=== PATIENT | male | born 1990 | race Caucasian/White ===

== ENCOUNTER 2019-04-11 19:55 | Emergency (ER) | payer OTHER, SELFPAY ==
[2019-04-11 20:45] LABS: Basophils Absolute Auto 0.1 K/mm3 (0.0-0.1); Basophils Percent Auto 0.6 % (0.2-1.2); Eosinophils Absolute Auto 0.2 K/mm3 (0-0.3); Eosinophils Percent Auto 1.5 % (0-4.4); Hematocrit 43.5 % (42.0-52.0); Hemoglobin 13.7 g/dL (14.0-18.0); Immature Granulocyte Absolute 0.03 K/mm3 (0.00-0.031); Immature Granulocyte Percent A 0.3 % (0-0.5); Lymphocytes Absolute Auto 2.76 K/mm3 (0.9-3.2); Lymphocytes Percent Auto 24.8 % (18.3-44.2); Mean Corpuscular HGB Conc 31.5 g/dl (32-36); Mean Corpuscular Hemoglobin 24.7 pg (26-34); Mean Corpuscular Volume 78.4 fl (80-100); Mean Platelet Volume 12.1 fl (7.4-10.4); Monocytes Absolute Auto 0.9 K/mm3 (0.1-0.6); Monocytes Percent Auto 8.1 % (2.6-8.5); Neutrophils Absolute Auto 7.2 K/mm3 (1.3-6.7); Neutrophils Percent Auto 64.7 % (45.5-73.1); Platelet Count Result 173 k/mm3 (150-375); Red Blood Count 5.55 M/mm3 (4.6-6.20); Red Cell Distribution Width 15.4 % (11.5-14.5); White Blood Count 11.1 K/mm3 (4.5-10.0)
[2019-04-11 20:55] LABS: Alanine Aminotransferase 19 U/L (4-50); Albumin Level 4.2 g/dL (3.5-5.1); Alkaline Phosphatase 135 U/L (38-126); Aspartate Amino Transferase 23 U/L (17-59); Bilirubin,Total 0.2 mg/dL (0.2-1.3); Blood Urea Nitrogen 17 mg/dL (9-20); Calcium 9.5 mg/dL (8.4-10.2); Carbon Dioxide 28 mmol/L (22-30); Chloride 101 mmol/L (98-107); Estimated Glomerular Filt Rate > 60; Glucose 116 mg/dL (75-110); Lipase 23 U/L (23-300); Potassium 3.7 mmol/L (3.4-5.0); Sodium 139 mmol/L (137-145)
[2019-04-11 22:12] LABS: Add Urine Microscopic? YES; Amorphous Sediment Urine Few; Appearance Urine Cloudy (Clear); Bilirubin Urine Negative (Negative); Blood Urine Negative (Negative); Color Urine Yellow (Yellow); Glucose Urine UA Negative (Negative); Ketones Urine Negative (Negative); Leukocyte Esterase Ur Negative LEU/UL (Negative); Nitrate Urine Negative (Negative); Protein Urine Negative (Negative); Specific Grav Ur 1.023 (1.001-1.035); Squamous Epithelial Cell Urine Few /hpf (Few); Urobilinogen Urine Negative mg/dL (<2.0); WBC Urine 0-3 /hpf
--- NOTE | 2019-04-12 00:58 | ED.GENADULT ---
HPI - General Adult General Chief complaint: Abdominal Pain Stated complaint: bleeding from rectum Time Seen by Provider: 04/12/19 00:57 Source: patient Mode of arrival: EMS Limitations: no limitations History of Present Illness HPI narrative: Pt was brought in by EMS for rectal bleeding and abdominal pain. He tells me he had a bowel movement today and saw blood in the toilet. He also has epigastric pain. He tells me he took 20 naproxen last week and drinks whiskey straight, when I drink and is concerned that he may now have an ulcer. He states that the pain gets worse when he eats. He was recently hospitalized for psychiatric care and states that he complained of the pain then and was given mylanta with no relief. Onset (ago): day(s) Location: abdomen Radiation: non-radiation Severity: severe (but not reflected in demeanor) Quality: stabbing Pain Consistency: constant Relieving factors: none Exacerbating factors: eating and other (touch) Associated symptoms: denies other symptoms Treatments prior to arrival: none Related Data Home Medications Medication Instructions Recorded Confirmed clonidine HCl 0.1 mg PO QID 02/01/19 divalproex 500 mg PO DAILY 02/01/19 famotidine 20 mg PO DAILY 02/01/19 gabapentin 100 mg PO TID 02/01/19 lithium carbonate 450 mg PO BID 02/01/19 metformin 500 mg PO BID 02/01/19 naproxen 500 mg PO BID PRN 02/01/19 quetiapine 200 mg PO HS 02/01/19 sertraline 100 mg PO DAILY 02/01/19 trazodone 100 mg PO HS 02/01/19 Allergies Allergy/AdvReac Type Severity Reaction Status Date / Time amoxicillin Allergy Intermediate Other Verified 02/01/19 14:18 red dye Allergy Intermediate Other Verified 02/01/19 14:18 latex Allergy Mild Rash Verified 02/01/19 14:18 ibuprofen AdvReac Mild Other Verified 02/01/19 23:59 Review of Systems Review of Systems: All systems reviewed & are unremarkable except as noted in HPI and below PMFSH Past Medical History Medical History Anxiety Arthritis Asthma Bronchitis Depression Diabetes GERD (gastroesophageal reflux disease) History of bipolar disorder HTN (hypertension) Previous known suicide attempt Schizophrenia Seizure Sleep apnea Ulcer UTI (urinary tract infection) Surgical History Surgical History History of bilateral hip replacements Social History Social History (Updated 04/12/19 @ 02:35 by Sharita Bueno PA-C) Smoking status: Never smoker Alcohol intake: current Substance use type: marijuana Gender identity (if verbalized by the patient): Male Exam Const: General: healthy appearing and no acute distress Orientation/consciousness: patient oriented x3 HENMT: Head: normal to inspection Ears: TM's normal bilaterally General nose exam: Normal nares present Mouth: Yes moist mucous membranes Eyes: Pupils: Equal, round and reactive pupils present Resp: Effort & Inspection: normal respiratory effort Auscultation: clear to auscultation bilaterally Cardio: Rate: regular rate Rhythm: regular rhythm GI: GI Palp: Yes abdominal tenderness (epigastric region) and Yes Soft to palpation Auscultation: normal bowel sounds Rectal Exam: visual inspection normal, normal sphincter tone and heme negative stool Skin: General skin exam: normal color Rashes: no rashes Neuro: General: moves all extremities Extrem: General: normal to inspection and no clubbing, cyanosis or edema Psych: Mental Status: mental status grossly normal Course Course Emergency Course: As I am talking to patient about labs and a plan I am unable to illicit pain in abdomen. Will treat with GI cocktail. Recommend that patient follow up with GI outpatient if pain persists. Medical Decision Making Lab Data Result diagrams: 04/11/19 20:38 04/11/19 20:38 Labs: Lab Results 04/11/19 04/11/19 04/11/19 Range/Units 20:38 2
[2019-04-12 01:04] VITALS: BP 142/91; PULSE 63; RESP 16; TEMP 36.6; O2SAT 98
[2019-04-12 02:22] VITALS: BP 111/68; PULSE 61; RESP 14; O2SAT 98
[2019-04-12] MEDS: BELLADONNA ALK/PHENOB ELIX 10 ML, MAG HYDROX/ALUMINUM HYD/SIMETH 30 ML, LIDOCAINE HCL 2... PO (02:49)
[2019-04-12 03:40] VITALS: BP 157/94; PULSE 68; RESP 16; TEMP 36.6; O2SAT 100
== END 2019-04-12 03:42 | disposition home or self-care (01) ==
PROVIDERS: Emergency Medicine; Emergency Provider Emergency Medicine; PCP Internal Medicine
DX: K29.70 Gastritis, unspecified, without bleeding (principal); F41.9 Anxiety disorder, unspecified; M19.90 Unspecified osteoarthritis, unspecified site; J45.909 Unspecified asthma, uncomplicated; E11.9 Type 2 diabetes mellitus without complications; K21.9 Gastro-esophageal reflux disease without esophagitis; I10 Essential (primary) hypertension; F31.9 Bipolar disorder, unspecified; F20.9 Schizophrenia, unspecified; G47.30 Sleep apnea, unspecified; Z87.440 Personal history of urinary (tract) infections; Z96.643 Presence of artificial hip joint, bilateral; Z79.84 Long term (current) use of oral hypoglycemic drugs
CPT/HCPCS: 36415; 80053; 81001; 83690; 85025; 99283; A9270

== ENCOUNTER 2019-05-03 16:15 | Emergency (ER) | payer OTHER, SELFPAY ==
[2019-05-03 16:47] VITALS: BP 149/121; PULSE 61; RESP 15; TEMP 36.9; O2SAT 99
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
[2019-05-03 17:13] LABS: Basophils Percent Auto 0.4 % (0.2-1.2); Eosinophils Absolute Auto 0.2 K/mm3 (0-0.3); Hematocrit 39.3 % (42.0-52.0); Hemoglobin 12.2 g/dL (14.0-18.0); Immature Granulocyte Absolute 0.01 K/mm3 (0.00-0.031); Immature Granulocyte Percent A 0.1 % (0-0.5); Immature Platelet Fraction Pct 4.1 % (0.9-11.2); Lymphocytes Absolute Auto 2.03 K/mm3 (0.9-3.2); Lymphocytes Percent Auto 22.1 % (18.3-44.2); Mean Corpuscular Hemoglobin 24.8 pg (26-34); Mean Corpuscular Volume 79.9 fl (80-100); Mean Platelet Volume 11.3 fl (7.4-10.4); Monocytes Absolute Auto 0.6 K/mm3 (0.1-0.6); Monocytes Percent Auto 6.1 % (2.6-8.5); Neutrophils Absolute Auto 6.4 K/mm3 (1.3-6.7); Neutrophils Percent Auto 69.3 % (45.5-73.1); Platelet Count Result 121 k/mm3 (150-375); Red Blood Count 4.92 M/mm3 (4.6-6.20); Red Cell Distribution Width 15.2 % (11.5-14.5); White Blood Count 9.2 K/mm3 (4.5-10.0)
[2019-05-03 17:14] LABS: Add Urine Microscopic? YES; Appearance Urine Clear (Clear); Bilirubin Urine Negative (Negative); Blood Urine 1+ (Negative); Color Urine Yellow (Yellow); Glucose Urine UA Negative (Negative); Ketones Urine Negative (Negative); Leukocyte Esterase Ur Negative LEU/UL (Negative); Mucus Urine Rare /lpf; Nitrate Urine Negative (Negative); Protein Urine Negative (Negative); RBC Urine 0-2 /hpf (0-2); Specific Grav Ur 1.017 (1.001-1.035); Squamous Epithelial Cell Urine Few /hpf (Few); Urobilinogen Urine Negative mg/dL (<2.0); WBC Urine 0-3 /hpf
[2019-05-03 17:24] LABS: Alanine Aminotransferase 21 U/L (4-50); Alkaline Phosphatase 108 U/L (38-126); Aspartate Amino Transferase 28 U/L (17-59); Bilirubin,Total 0.2 mg/dL (0.2-1.3); Blood Urea Nitrogen 10 mg/dL (9-20); Calcium 9.2 mg/dL (8.4-10.2); Carbon Dioxide 29 mmol/L (22-30); Chloride 104 mmol/L (98-107); Estimated CRCL calculation 325 ml/min; Estimated Glomerular Filt Rate > 60; Glucose 95 mg/dL (75-110); Potassium 3.9 mmol/L (3.4-5.0); Sodium 140 mmol/L (137-145)
[2019-05-03 17:25] LABS: Ethanol < 10 mg/dL (<10)
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
[2019-05-03 17:32] LABS: Amphetamine Screen Urine Negative (Negative); Barbiturate Screen Urine Negative (Negative); Benzodiazepines Screen Urine Positive (Negative); Cannabinoid Screen Urine Negative (Negative); Cocaine Screen Urine Negative (Negative); Methadone Screen Urine Negative (Negative); Opiate Screen Urine Negative (Negative); Phencyclidine Screen Urine Negative (Negative)
[2019-05-03 18:00] LABS: Thyroid Stimulating Hormone 0.759 uIU/mL (0.465-4.680)
--- NOTE | 2019-05-03 19:17 | PC.NURSE ---
Nancy from Crisis is here to see pt.
== END 2019-05-03 20:50 ==
PROVIDERS: Emergency Medicine; Emergency Provider Emergency Medicine; PCP Internal Medicine
DX: R45.4 Irritability and anger (principal); E11.9 Type 2 diabetes mellitus without complications; M19.90 Unspecified osteoarthritis, unspecified site; J45.909 Unspecified asthma, uncomplicated; K21.9 Gastro-esophageal reflux disease without esophagitis; I10 Essential (primary) hypertension; F31.9 Bipolar disorder, unspecified; Z87.440 Personal history of urinary (tract) infections; F20.9 Schizophrenia, unspecified; F41.9 Anxiety disorder, unspecified; Z79.84 Long term (current) use of oral hypoglycemic drugs
CPT/HCPCS: 36415; 80053; 80307; 81001; 84443; 85025; 85055; 99284

== ENCOUNTER 2019-05-25 20:04 | Emergency (ER) | payer OTHER, SELFPAY ==
--- NOTE | ~2019-05-25 | XR_ITS ---
XR ankle RT min 3V DATE: 05/25/2019 20:56 INDICATION: Right ankle pain, lateral swelling TECHNIQUE: 4 views COMPARISON: None FINDINGS: No recent fracture or dislocation of the ankle or disruption of the ankle mortise. No perio steal reaction or bone destruction. IMPRESSION: No recent fracture or dislocation Reviewed, dictated and finalized at location A.
[2019-05-25 20:16] VITALS: BP 129/65; PULSE 72; RESP 16; TEMP 36.5; O2SAT 99
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
[2019-05-25 20:51] LABS: Add Urine Microscopic? YES; Amorphous Sediment Urine Moderate; Appearance Urine Cloudy (Clear); Bilirubin Urine Negative (Negative); Blood Urine Negative (Negative); Color Urine Yellow (Yellow); Glucose Urine UA Negative (Negative); Ketones Urine Negative (Negative); Leukocyte Esterase Ur Negative LEU/UL (Negative); Mucus Urine Rare /lpf; Nitrate Urine Negative (Negative); Protein Urine 1+ mg/dL (Negative); RBC Urine 0-2 /hpf (0-2); Specific Grav Ur 1.023 (1.001-1.035); Squamous Epithelial Cell Urine Few /hpf (Few); Urobilinogen Urine Negative mg/dL (<2.0)
[2019-05-25 20:57] LABS: Basophils Absolute Auto 0.1 K/mm3 (0.0-0.1); Basophils Percent Auto 0.6 % (0.2-1.2); Eosinophils Absolute Auto 0.1 K/mm3 (0-0.3); Eosinophils Percent Auto 1.5 % (0-4.4); Hematocrit 41.6 % (42.0-52.0); Immature Granulocyte Absolute 0.02 K/mm3 (0.00-0.031); Immature Granulocyte Percent A 0.2 % (0-0.5); Mean Corpuscular HGB Conc 31.3 g/dl (32-36); Mean Corpuscular Hemoglobin 24.7 pg (26-34); Mean Corpuscular Volume 78.9 fl (80-100); Mean Platelet Volume 11.9 fl (7.4-10.4); Monocytes Absolute Auto 0.7 K/mm3 (0.1-0.6); Monocytes Percent Auto 7.9 % (2.6-8.5); Neutrophils Absolute Auto 5.6 K/mm3 (1.3-6.7); Neutrophils Percent Auto 67.8 % (45.5-73.1); Platelet Count Result 114 k/mm3 (150-375); Red Blood Count 5.27 M/mm3 (4.6-6.20); Red Cell Distribution Width 15.2 % (11.5-14.5); White Blood Count 8.2 K/mm3 (4.5-10.0)
--- NOTE | 2019-05-25 21:00 | PC.NURSE ---
Patient medically cleared per verbal order from Dr Matias.
[2019-05-25 21:01] LABS: Amphetamine Screen Urine Negative (Negative); Barbiturate Screen Urine Negative (Negative); Benzodiazepines Screen Urine Negative (Negative); Cannabinoid Screen Urine Negative (Negative); Cocaine Screen Urine Negative (Negative); Methadone Screen Urine Negative (Negative); Opiate Screen Urine Negative (Negative); Phencyclidine Screen Urine Negative (Negative)
[2019-05-25 21:09] LABS: Alanine Aminotransferase 21 U/L (4-50); Albumin Level 4.1 g/dL (3.5-5.1); Alkaline Phosphatase 104 U/L (38-126); Aspartate Amino Transferase 29 U/L (17-59); Bilirubin,Total 0.4 mg/dL (0.2-1.3); Blood Urea Nitrogen 13 mg/dL (9-20); Calcium 9.4 mg/dL (8.4-10.2); Carbon Dioxide 28 mmol/L (22-30); Chloride 103 mmol/L (98-107); Estimated CRCL calculation 272 ml/min; Estimated Glomerular Filt Rate > 60; Glucose 99 mg/dL (75-110); Potassium 3.8 mmol/L (3.4-5.0); Sodium 139 mmol/L (137-145)
[2019-05-25 21:11] LABS: Ethanol < 10 mg/dL (<10)
[2019-05-25 21:40] LABS: Thyroid Stimulating Hormone 0.871 uIU/mL (0.465-4.680)
--- NOTE | 2019-05-26 00:14 | PC.NURSE ---
Sabi Allred called and asked for additional information to be added to Voluntary form. Form fixed and resent.
--- NOTE | 2019-05-26 02:17 | ECG_ITS ---
Measurements Intervals [place] Rate: 52 P: 39 AL: 227 QRS: 13 QRSD: 112 T: 31 QT: 430 QTc: 400 Interpretive Statements SINUS BRADYCARDIA WITH FIRST DEGREE AV BLOCK INTRAVENTRICULAR CONDUCTION DELAY ABNORMAL ECG Electronically Signed On 05-26-2019 9:33:16 CDT by Donte Sanchez D.O.
[2019-05-26 04:33] VITALS: BP 108/46; PULSE 75; TEMP 36.8; O2SAT 97
--- NOTE | 2019-05-26 06:42 | PCDIET ---
Breakfast ordered at this time.
[2019-05-26 07:56] VITALS: BP 117/83; PULSE 70; RESP 16; O2SAT 96
== END 2019-05-26 07:57 ==
PROVIDERS: Emergency Provider Emergency Medicine; PCP Internal Medicine
DX: R45.850 Homicidal ideations (principal); F41.9 Anxiety disorder, unspecified; J45.909 Unspecified asthma, uncomplicated; E11.9 Type 2 diabetes mellitus without complications; K21.9 Gastro-esophageal reflux disease without esophagitis; F31.9 Bipolar disorder, unspecified; I10 Essential (primary) hypertension; F20.9 Schizophrenia, unspecified; G47.30 Sleep apnea, unspecified; Z87.440 Personal history of urinary (tract) infections; Z96.643 Presence of artificial hip joint, bilateral; Z79.84 Long term (current) use of oral hypoglycemic drugs
CPT/HCPCS: 36415; 73610; 80053; 80307; 81001; 84443; 85025; 93005; 99285

== ENCOUNTER 2019-06-16 18:07 | Emergency (ER) | payer OTHER, SELFPAY ==
--- NOTE | ~2019-06-16 | XR_ITS ---
EXAMINATION: XR chest 1V portable EXAM DATE: 06/16/2019 18:21 INDICATION: Right arm, chest pain. TECHNIQUE: Portable AP frontal chest x-ray was obtained. There is no prior study for comparison. FINDINGS: The lungs are clear. There are no pleural effusions. The cardiomediastinal silhouette is within normal limits. There is no pneumothorax suspected. The bones and soft tissues are unremarkab le. IMPRESSION: No acute cardiopulmonary findings. Reviewed, dictated and finalized at location A.
[2019-06-16 18:04] VITALS: BP 153/140; PULSE 59; RESP 20; O2SAT 100
--- NOTE | 2019-06-16 18:10 | ECG_ITS ---
Measurements Intervals [place] Rate: 54 P: 46 HI: 188 QRS: 0 QRSD: 104 T: 16 QT: 399 QTc: 378 Interpretive Statements SINUS BRADYCARDIA INCOMPLETE RIGHT BUNDLE BRANCH BLOCK VOLTAGE CRITERIA FOR LVH BASELINE ARTIFACT- I, II, AVR, V4-V6 BORDERLINE ECG Electronically Signed On 06-17-2019 7:10:52 CDT by Donte Sanchez D.O.
--- NOTE | 2019-06-16 18:11 | ED.CHESTPAIN ---
HPI - Chest Pain General Chief Complaint: Chest Pain Stated Complaint: chest pain Time Seen by Provider: 06/16/19 18:10 Source: RN notes reviewed Mode of arrival: EMS Limitations: no limitations History of Present Illness HPI narrative: A 28 y/o male [facility] sub[facility] beginning roughly 50 minutes ago. He states that the pain radiates into her RUE. He reports associated SOB, cough, sneezing, N/V, and ABD pain. He denies any fevers or chills. MD complaint: chest pain Pertinent past history: asthma Onset (ago): minute(s) (50) Pain location: substernal Pain radiation: right arm Associated symptoms: nausea, vomiting, dyspnea, cough and other (sneezing and ABD pain) Related Data Home Medications Medication Instructions Recorded Confirmed clonidine HCl 0.1 mg PO QID 02/01/19 divalproex 500 mg PO DAILY 02/01/19 famotidine 20 mg PO DAILY 02/01/19 gabapentin 100 mg PO TID 02/01/19 lithium carbonate 450 mg PO BID 02/01/19 metformin 500 mg PO BID 02/01/19 naproxen 500 mg PO BID PRN 02/01/19 quetiapine 200 mg PO HS 02/01/19 sertraline 100 mg PO DAILY 02/01/19 trazodone 100 mg PO HS 02/01/19 Allergies Allergy/AdvReac Type Severity Reaction Status Date / Time amoxicillin Allergy Intermediate Other Verified 06/16/19 18:10 red dye Allergy Intermediate Other Verified 06/16/19 18:10 latex Allergy Mild Rash Verified 06/16/19 18:10 ibuprofen AdvReac Mild Other Verified 06/16/19 18:10 Review of Systems Review of Systems: All systems reviewed & are unremarkable except as noted in HPI and below ENT: Reports nasal discharge Cardiovascular: Cardiovascular: Reports chest pain (substernal that radiates into RUE) Respiratory: Respiratory: Reports cough and Reports dyspnea Gastrointestinal: Gastrointestinal: Reports abdominal pain, Reports nausea and Reports vomiting PMFSH Past Medical History Medical History Anxiety Arthritis Asthma Bronchitis Depression Diabetes GERD (gastroesophageal reflux disease) History of bipolar disorder HTN (hypertension) Previous known suicide attempt Schizophrenia Seizure Sleep apnea Ulcer UTI (urinary tract infection) Surgical History Surgical History History of bilateral hip replacements Social History Social History Smoking status: Never smoker Alcohol intake: current Substance use type: marijuana Gender identity (if verbalized by the patient): Male Exam Narrative: Exam Narrative: General appearance: Well-developed, well-nourished, restless Skin: Normal color Head: Normocephalic, nontraumatic Eyes: Clear conjunctiva ENT: Oropharynx normal, ears normal, nose normal Neck: Supple, nontender Chest and respiratory: Airway patent, no respiratory distress, no accessory muscle use Heart: Regular rate/rhythm Abdomen: Soft, nontender, no organomegaly, quiet bowel sounds Vascular: Normal peripheral pulses, normal capillary refill. Musculoskeletal: Normal range of motion, nontender back Neurologic: Alert and oriented ?3, [employer] is normal as tested, no gross motor deficit Course Course Emergency Course: Stable Vital Signs Vital signs: Vital Signs Pulse Rate 59 L 06/16/19 18:04 Respiratory Rate 20 06/16/19 18:04 Blood Pressure 153/140 H 06/16/19 18:04 Pulse Oximetry 100 06/16/19 18:04 Pulse Rate 59 L 06/16/19 18:04 Respiratory Rate 20 06/16/19 18:04 Blood Pressure 153/140 H 06/16/19 18:04 Pulse Oximetry 100 06/16/19 18:04 MDM - Chest Pain MDM Narrative Medical decision making narrat
[2019-06-16 18:36] VITALS: BP 131/96; PULSE 50; RESP 18; O2SAT 100
[2019-06-16] MEDS: ONDANSETRON HCL ODT 4 MG TABLET PO (18:45)
[2019-06-16 19:22] VITALS: BP 131/96; PULSE 58; RESP 20; O2SAT 100
== END 2019-06-16 19:26 | disposition home or self-care (01) ==
PROVIDERS: Emergency Provider Emergency Medicine; PCP Internal Medicine
DX: R07.89 Other chest pain (principal); F41.9 Anxiety disorder, unspecified; M19.90 Unspecified osteoarthritis, unspecified site; E11.9 Type 2 diabetes mellitus without complications; K21.9 Gastro-esophageal reflux disease without esophagitis; F31.9 Bipolar disorder, unspecified; I10 Essential (primary) hypertension; F20.9 Schizophrenia, unspecified; G47.30 Sleep apnea, unspecified; Z87.440 Personal history of urinary (tract) infections; Z96.643 Presence of artificial hip joint, bilateral; R00.1 Bradycardia, unspecified; I45.10 Unspecified right bundle-branch block; R94.31 Abnormal electrocardiogram [ECG] [EKG]
CPT/HCPCS: 71045; 93005; 99283; A9270

== ENCOUNTER 2019-06-30 19:42 | Emergency (ER) | payer OTHER, SELFPAY ==
[2019-06-30 19:43] VITALS: BP 131/94; PULSE 68; RESP 18; TEMP 36.3; O2SAT 99
[2019-06-30 20:26] LABS: Basophils Absolute Auto 0.1 K/mm3 (0.0-0.1); Basophils Percent Auto 0.6 % (0.2-1.2); Eosinophils Absolute Auto 0.2 K/mm3 (0-0.3); Eosinophils Percent Auto 2.7 % (0-4.4); Hematocrit 42.4 % (42.0-52.0); Hemoglobin 13.1 g/dL (14.0-18.0); Immature Granulocyte Absolute 0.03 K/mm3 (0.00-0.031); Immature Granulocyte Percent A 0.4 % (0-0.5); Lymphocytes Absolute Auto 2.06 K/mm3 (0.9-3.2); Lymphocytes Percent Auto 24.6 % (18.3-44.2); Mean Corpuscular HGB Conc 30.9 g/dl (32-36); Mean Corpuscular Hemoglobin 24.9 pg (26-34); Mean Corpuscular Volume 80.6 fl (80-100); Mean Platelet Volume 12.4 fl (7.4-10.4); Monocytes Absolute Auto 0.6 K/mm3 (0.1-0.6); Monocytes Percent Auto 6.9 % (2.6-8.5); Neutrophils Absolute Auto 5.4 K/mm3 (1.3-6.7); Neutrophils Percent Auto 64.8 % (45.5-73.1); Platelet Count Result 119 k/mm3 (150-375); Red Blood Count 5.26 M/mm3 (4.6-6.20); White Blood Count 8.4 K/mm3 (4.5-10.0)
[2019-06-30 20:39] LABS: Add Urine Microscopic? YES; Appearance Urine Clear (Clear); Bilirubin Urine Negative (Negative); Blood Urine Negative (Negative); Color Urine Yellow (Yellow); Glucose Urine UA Negative (Negative); Ketones Urine Negative (Negative); Leukocyte Esterase Ur Negative LEU/UL (Negative); Mucus Urine Rare /lpf; Nitrate Urine Negative (Negative); Protein Urine 1+ mg/dL (Negative); RBC Urine 0-2 /hpf (0-2); Specific Grav Ur 1.023 (1.001-1.035); Squamous Epithelial Cell Urine Few /hpf (Few); Urobilinogen Urine Negative mg/dL (<2.0); WBC Urine 0-3 /hpf
[2019-06-30 20:40] LABS: Alanine Aminotransferase 26 U/L (4-50); Albumin Level 4.2 g/dL (3.5-5.1); Alkaline Phosphatase 90 U/L (38-126); Aspartate Amino Transferase 32 U/L (17-59); Bilirubin,Total 0.6 mg/dL (0.2-1.3); Blood Urea Nitrogen 10 mg/dL (9-20); Calcium 9.1 mg/dL (8.4-10.2); Carbon Dioxide 33 mmol/L (22-30); Chloride 101 mmol/L (98-107); Estimated CRCL calculation 263 ml/min; Estimated Glomerular Filt Rate > 60; Ethanol < 10 mg/dL (<10); Glucose 91 mg/dL (75-110); Potassium 3.8 mmol/L (3.4-5.0); Sodium 139 mmol/L (137-145)
[2019-06-30 20:52] LABS: Amphetamine Screen Urine Negative (Negative); Barbiturate Screen Urine Negative (Negative); Benzodiazepines Screen Urine Negative (Negative); Cannabinoid Screen Urine Negative (Negative); Cocaine Screen Urine Negative (Negative); Methadone Screen Urine Negative (Negative); Opiate Screen Urine Negative (Negative); Phencyclidine Screen Urine Negative (Negative)
--- NOTE | 2019-06-30 21:08 | ED.PSYCH ---
HPI - Psych General Chief Complaint: Psychiatric Symptoms <Lyubov Durham MD - Last Filed: 07/01/19 06:48> Stated Complaint: SI <Lyubov Durham MD - Last Filed: 07/01/19 06:48> Time Seen by Provider: 06/30/19 20:05 <Lyubov Durham MD - Last Filed: 07/01/19 06:48> Source: patient and EMS <Lyubov Durham MD - Last Filed: 07/01/19 06:48> Mode of arrival: EMS <Lyubov Durham MD - Last Filed: 07/01/19 06:48> History of Present Illness HPI Narrative: This patient is 28 yo male with Bipolar disorder who presents for evaluation of suicidal ideations. Patient is well known to staff. EMS reports patient walked to the police station stating he was suicidal and he was going to take some pills. Patient states he went to police because he felt like everything is crashing down on me over past 2 weeks . He states he was told that he is unable to return to his housing and his parents have kicked him out of the house. He states he had no where else to go. <Lyubov Durham MD - Last Filed: 07/01/19 06:48> MD complaint: suicidal ideation <yLubov Durham MD - Last Filed: 07/01/19 06:48> Related Data Home Medications: Home Medications Medication Instructions Recorded Confirmed clonidine HCl 0.1 mg PO QID 02/01/19 divalproex 500 mg PO DAILY 02/01/19 famotidine 20 mg PO DAILY 02/01/19 gabapentin 100 mg PO TID 02/01/19 lithium carbonate 450 mg PO BID 02/01/19 metformin 500 mg PO BID 02/01/19 naproxen 500 mg PO BID PRN 02/01/19 quetiapine 200 mg PO HS 02/01/19 sertraline 100 mg PO DAILY 02/01/19 trazodone 100 mg PO HS 02/01/19 <Lyubov Durham MD - Last Filed: 07/01/19 06:48> Allergies/Adverse Reactions: Allergies Allergy/AdvReac Type Severity Reaction Status Date / Time amoxicillin Allergy Intermediate Other Verified 06/16/19 18:10 red dye Allergy Intermediate Other Verified 06/16/19 18:10 latex Allergy Mild Rash Verified 06/16/19 18:10 ibuprofen AdvReac Mild Other Verified 06/16/19 18:10 <Lyubov Durham MD - Last Filed: 07/01/19 06:48> Review of Systems Constitutional: Constitutional: Denies chills and Denies fever(s) <Lyubov Durham MD - Last Filed: 07/01/19 06:48> ENT: Denies vertigo and Denies nasal congestion <Lyubov Durham MD - Last Filed: 07/01/19 06:48> Psychiatric: Psychiatric: Reports suicidal ideation <Lyubov Durham MD - Last Filed: 07/01/19 06:48> [facility] Past Medical History Medical History: Medical History Anxiety Arthritis Asthma Bronchitis Depression Diabetes GERD (gastroesophageal reflux disease) History of bipolar disorder HTN (hypertension) Previous known suicide attempt Schizophrenia Seizure Sleep apnea Ulcer UTI (urinary tract infection) <Lyubov Durham MD - Last Filed: 07/01/19 06:48> Surgical History Surgical History: Surgical History History of bilateral hip replacements <Lyubov Durham MD - Last Filed: 07/01/19 06:48> Social History Social History: Social History Smoking status: Never smoker Alcohol intake: current Substance use type: marijuana Gender identity (if verbalized by the patient): Male <Lyubov Durham MD - Last Filed: 07/01/19 06:48> Exam Const: General: no acute distress and alert <Lyubov Durham MD - Last Filed: 07/01/19 06:48> Orientation/consciousness: patient oriented x3 <Lyubov Durham MD - Last Filed: 07/01/19 06:48> HENMT: Head: normocephalic and atraumatic <Lyubov Durham MD - Last Filed: 07/01/19 06:48> Face and sinus: face symmetric <Lyubov Durham MD - Last Filed: 07/01/19 06:48> Mouth: Yes Normal oral and palatal mucosa present, Yes lip normal and Yes oropharynx normal <Lyubov Durham MD - Last Filed: 07/01/19 06:48> Teeth and ging
[2019-06-30 21:10] LABS: Thyroid Stimulating Hormone 0.311 uIU/mL (0.465-4.680)
--- NOTE | 2019-06-30 21:54 | PC.NURSE ---
Spoke with Crisis about pt and they stated they would dispatch someone to eval him.
--- NOTE | 2019-07-01 00:44 | PC.NURSE ---
[facility] here to evaluate Pt. Crisis okayed pt to go home. Pt has no ride so will be here until a ride is available.
[2019-07-01 05:44] VITALS: BP 128/96; PULSE 72; RESP 18; O2SAT 98
--- NOTE | 2019-07-01 06:18 | PC.NURSE ---
Pt waiting for transport back to [facility]. Pt states that staff at [facility] doesnt arrive until 730-8. [place] to be called at this time to facilitate ride home.
--- NOTE | 2019-07-01 07:00 | PC.NURSE ---
care assumed from rn shift mgr. pt to be discharged. marilyn to be contacted at [phone] to obtain cab voucher from [employer]
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
== END 2019-07-01 09:20 | disposition home or self-care (01) ==
PROVIDERS: General Practice; Emergency Provider Emergency Medicine; PCP Internal Medicine
DX: F31.9 Bipolar disorder, unspecified (principal); F41.9 Anxiety disorder, unspecified; J45.909 Unspecified asthma, uncomplicated; E11.9 Type 2 diabetes mellitus without complications; K21.9 Gastro-esophageal reflux disease without esophagitis; I10 Essential (primary) hypertension; G47.30 Sleep apnea, unspecified; Z87.440 Personal history of urinary (tract) infections; Z96.643 Presence of artificial hip joint, bilateral
CPT/HCPCS: 36415; 80053; 80307; 81001; 84443; 85025; 99284

== ENCOUNTER 2019-07-05 20:40 | Emergency (ER) | payer OTHER, SELFPAY ==
--- NOTE | ~2019-07-05 | XR_ITS ---
EXAMINATION: XR ribs BI 3V w CXR 2V INDICATION: Bilateral rib pain after fall TECHNIQUE: Frontal and lateral views of the chest and 3 views of the bilateral ribs were obtained. COMPARISON: 06/16/2019 FINDINGS: The lungs are free of acute opacities. There is no pleural effusion or pneumothorax. The ca rdiomediastinal silhouette is normal. The visualized bones and soft tissues are unremarkable. No disp laced rib fracture is identified. IMPRESSION: 1. No acute cardiopulmonary abnormality or evidence of displaced rib fracture. Reviewed, dictated and finalized at location A.
--- NOTE | ~2019-07-05 | CT_ITS ---
EXAMINATION: CT brain wo con INDICATION: Transient alteration of awareness COMPARISON: None TECHNIQUE: Standard unenhanced head CT. The dose-length product (DLP) was 605.33 mGy-cm. The mA was a djusted according to patient size. Iterative reconstruction technique was employed. FINDINGS: There is no intracranial hemorrhage, acute infarction, or abnormal mass lesion. The ventric les are normal. There is no abnormal mass effect or midline shift. The horowitz-white matter differentiat ion is normal. The basal cisterns are patent. The orbits are normal. The paranasal sinuses, mastoids and calvarium are normal. IMPRESSION: 1. No acute intracranial abnormality. Reviewed, dictated and finalized at location A.
[2019-07-05 20:43] VITALS: BP 156/74; PULSE 68; RESP 20; TEMP 36.7; O2SAT 99
[2019-07-05 20:46] VITALS: PULSE 67
[2019-07-05 20:51] VITALS: O2SAT 100
--- NOTE | 2019-07-05 21:24 | ED.SEIZURE ---
HPI - Seizure General Chief Complaint: Seizure Stated Complaint: seizure Time Seen by Provider: 07/05/19 21:20 Source: patient and old records reviewed Mode of arrival: EMS Limitations: no limitations History of Present Illness HPI Narrative: Patient is a 28-year-old male well-known to this emergency department who presents with report of a seizure. Patient lives in [facility] and has extensive psychiatric history as well as a seizure disorder. Patient is on Depakote for his seizures. Patient reports he had a seizure yesterday and again tonight. Patient reports his roommate said the seizure was the worst when he seen the patient have. Patient fell and hit his head and complains of pain to the left occipital region where he hit his head. Patient also had vomiting during his seizure. He is also complaining of bilateral rib pain. Patient is alert and oriented and at his baseline currently. MD complaint: seizure Onset (ago): hour(s) Description of Episode: loss of consciousness Witnessed: Yes - by Bystander (roommate) Seizure History: Yes Place: home Related Data Home Medications Medication Instructions Recorded Confirmed clonidine HCl 0.1 mg PO QID 02/01/19 divalproex 1,500 mg PO DAILY 02/01/19 07/05/19 famotidine 20 mg PO DAILY 02/01/19 gabapentin 100 mg PO TID 02/01/19 lithium carbonate 450 mg PO BID 02/01/19 metformin 500 mg PO BID 02/01/19 naproxen 500 mg PO BID PRN 02/01/19 quetiapine 200 mg PO HS 02/01/19 sertraline 100 mg PO DAILY 02/01/19 trazodone 100 mg PO HS 02/01/19 Allergies Allergy/AdvReac Type Severity Reaction Status Date / Time amoxicillin Allergy Intermediate Other Verified 07/05/19 20:46 red dye Allergy Intermediate Other Verified 07/05/19 20:46 latex Allergy Mild Rash Verified 07/05/19 20:46 ibuprofen AdvReac Mild Other Verified 07/05/19 20:46 Review of Systems Review of Systems: All systems reviewed & are unremarkable except as noted in HPI and below Gastrointestinal: Gastrointestinal: Reports vomiting Musculoskeletal: Musculoskeletal: Reports other (Bilateral rib pain) Neurologic: Reports headache(s) and Reports seizure-like activity PMFSH Past Medical History Medical History Anxiety Arthritis Asthma Bronchitis Depression Diabetes GERD (gastroesophageal reflux disease) History of bipolar disorder HTN (hypertension) Previous known suicide attempt Schizophrenia Seizure Sleep apnea Ulcer UTI (urinary tract infection) Surgical History Surgical History History of bilateral hip replacements Social History Social History Smoking status: Never smoker Alcohol intake: current Substance use type: marijuana Gender identity (if verbalized by the patient): Male Exam Const: General: cooperative, no acute distress and alert Nutritional Appearance: obese morbidly obese Orientation/consciousness: patient oriented x3 Limitations: no limitations HENMT: Mouth: Yes lip normal and Yes moist mucous membranes Eyes: Conjunctivae: conjunctivae normal Pupils: Equal, round and reactive pupils present Chest: Chest palpation & inspection: tenderness rib (Bilateral lower) Resp: Effort & Inspection: normal respiratory effort Auscultation: clear to auscultation bilaterally Cardio: Rate: regular rate Rhythm: regular rhythm GI: GI Palp: Yes Soft to palpation and No Tenderness to palpation present (GI) Auscultation: normal bowel sounds Skin: General skin exam: normal color Neuro: General: patient oriented x3 Cognition (Neuro): normal cognition Speech: normal speech Extrem: General: normal to inspection, full ROM and no clubbing, cyanosis or edema Psych: Mental Status: mental status grossly normal Affect: normal affect Attitude: cooperative Course Course Emergency Course: Tess
--- NOTE | 2019-07-05 21:33 | ECG_ITS ---
Measurements Intervals [place] Rate: 54 P: 70 TN: 180 QRS: 8 QRSD: 108 T: 34 QT: 391 QTc: 370 Interpretive Statements SINUS BRADYCARDIA INCOMPLETE RIGHT BUNDLE BRANCH BLOCK VOLTAGE CRITERIA FOR LVH BASELINE ARTIFACT- I, II, III, AVR, AVL, AVF, V1-V6 BORDERLINE ECG Electronically Signed On 07-06-2019 8:52:42 CDT by Donte Sanchez D.O.
[2019-07-05 21:55] LABS: Basophils Absolute Auto 0.1 K/mm3 (0.0-0.1); Basophils Percent Auto 0.8 % (0.2-1.2); Eosinophils Absolute Auto 0.2 K/mm3 (0-0.3); Eosinophils Percent Auto 2.6 % (0-4.4); Hemoglobin 13.1 g/dL (14.0-18.0); Immature Granulocyte Absolute 0.03 K/mm3 (0.00-0.031); Immature Granulocyte Percent A 0.4 % (0-0.5); Lymphocytes Absolute Auto 2.36 K/mm3 (0.9-3.2); Lymphocytes Percent Auto 27.6 % (18.3-44.2); Mean Corpuscular HGB Conc 31.2 g/dl (32-36); Mean Corpuscular Hemoglobin 25.1 pg (26-34); Mean Corpuscular Volume 80.5 fl (80-100); Mean Platelet Volume 12.2 fl (7.4-10.4); Monocytes Absolute Auto 0.8 K/mm3 (0.1-0.6); Neutrophils Absolute Auto 5.1 K/mm3 (1.3-6.7); Neutrophils Percent Auto 59.6 % (45.5-73.1); Platelet Count Result 113 k/mm3 (150-375); Red Blood Count 5.22 M/mm3 (4.6-6.20); Red Cell Distribution Width 14.8 % (11.5-14.5); White Blood Count 8.5 K/mm3 (4.5-10.0)
[2019-07-05 22:07] LABS: Alanine Aminotransferase 24 U/L (4-50); Alkaline Phosphatase 171 U/L (38-126); Aspartate Amino Transferase 27 U/L (17-59); Bilirubin,Total 0.2 mg/dL (0.2-1.3); Blood Urea Nitrogen 6 mg/dL (9-20); Calcium 8.8 mg/dL (8.4-10.2); Carbon Dioxide 26 mmol/L (22-30); Chloride 107 mmol/L (98-107); Estimated Glomerular Filt Rate > 60; Glucose 128 mg/dL (75-110); Potassium 3.3 mmol/L (3.4-5.0); Sodium 140 mmol/L (137-145)
[2019-07-05 22:33] LABS: Valproic Acid 43.9 ug/mL (50-120)
[2019-07-05] MEDS: levETIRAcetam 1000MG/NACL100ML 1,000 MG/100 ML BAG 400 MG IVPB (22:33)
[2019-07-05 22:35] VITALS: BP 121/104; PULSE 63; RESP 20; O2SAT 100
[2019-07-05 23:07] LABS: Add Urine Microscopic? YES; Appearance Urine Clear (Clear); Bilirubin Urine Negative (Negative); Blood Urine Negative (Negative); Color Urine Yellow (Yellow); Glucose Urine UA Negative (Negative); Ketones Urine Negative (Negative); Leukocyte Esterase Ur Negative LEU/UL (Negative); Mucus Urine Rare /lpf; Nitrate Urine Negative (Negative); Protein Urine 1+ mg/dL (Negative); RBC Urine 0-2 /hpf (0-2); Squamous Epithelial Cell Urine Few /hpf (Few); WBC Urine 0-3 /hpf
[2019-07-06] MEDS: DIVALPROEX SODIUM ER 500 MG TAB PO (00:07)
[2019-07-06 00:11] VITALS: BP 136/82; PULSE 70; RESP 20; O2SAT 99
--- NOTE | 2019-07-06 00:20 | PC.NURSE ---
REPORT CALLED TO JUWAN BUCK AT [facility]- REPORT GIVEN. STATES CALL [facility] [employer] [facility] FOR PT. CAB CALLED
== END 2019-07-06 00:20 | disposition home or self-care (01) ==
PROVIDERS: Emergency Provider Emergency Medicine; PCP Internal Medicine
DX: G40.909 Epilepsy, unspecified, not intractable, without status epilepticus (principal); F41.9 Anxiety disorder, unspecified; M19.90 Unspecified osteoarthritis, unspecified site; J45.909 Unspecified asthma, uncomplicated; E11.9 Type 2 diabetes mellitus without complications; K21.9 Gastro-esophageal reflux disease without esophagitis; I10 Essential (primary) hypertension; F31.9 Bipolar disorder, unspecified; F20.9 Schizophrenia, unspecified; G47.30 Sleep apnea, unspecified; Z87.440 Personal history of urinary (tract) infections; Z96.643 Presence of artificial hip joint, bilateral; Z79.84 Long term (current) use of oral hypoglycemic drugs; R00.1 Bradycardia, unspecified; I45.10 Unspecified right bundle-branch block; R94.31 Abnormal electrocardiogram [ECG] [EKG]
CPT/HCPCS: 36415; 70450; 71046; 71110; 80053; 80164; 81001; 85025; 93005; 96365; 99284; A9270; J1953

== ENCOUNTER 2019-07-19 16:32 | Emergency (ER) | payer OTHER, SELFPAY ==
[2019-07-19 16:34] VITALS: BP 140/62; PULSE 61; RESP 18; TEMP 37.1; O2SAT 100
--- NOTE | 2019-07-19 16:43 | ED.GENADULT ---
HPI - General Adult General Chief complaint: Chest Pain Stated complaint: CP,SOB x several days Time Seen by Provider: 07/19/19 16:32 History of Present Illness HPI narrative: 28 yo male w/ h/o HTN, DM, and significant psychiatric history presents with multiple complaints. He reports that he has had dentla pain for 1-2 weeks. He was previously seen at another hospital for this and started on antibiotics. He continues to have pain. He also complains of chest pain and feeling generally sick. He is well known to this ED and has been thoroughly worked up for these complaints multiple times in the past. Related Data Home Medications Medication Instructions Recorded Confirmed clonidine HCl 0.1 mg PO QID 02/01/19 divalproex 1,500 mg PO DAILY 02/01/19 07/05/19 famotidine 20 mg PO DAILY 02/01/19 gabapentin 100 mg PO TID 02/01/19 lithium carbonate 450 mg PO BID 02/01/19 metformin 500 mg PO BID 02/01/19 naproxen 500 mg PO BID PRN 02/01/19 quetiapine 200 mg PO HS 02/01/19 sertraline 100 mg PO DAILY 02/01/19 trazodone 100 mg PO HS 02/01/19 Allergies Allergy/AdvReac Type Severity Reaction Status Date / Time amoxicillin Allergy Intermediate Other Verified 07/05/19 20:46 red dye Allergy Intermediate Other Verified 07/05/19 20:46 latex Allergy Mild Rash Verified 07/05/19 20:46 ibuprofen AdvReac Mild Other Verified 07/05/19 20:46 Review of Systems Review of Systems: All systems reviewed & are unremarkable except as noted in HPI and below Constitutional: Constitutional: Denies fever(s) ENT: Denies sore throat Cardiovascular: Cardiovascular: Reports chest pain Respiratory: Respiratory: Reports dyspnea Gastrointestinal: Gastrointestinal: Denies abdominal pain and Reports vomiting Neurologic: Reports numbness PMFSH Past Medical History Medical History Anxiety Arthritis Asthma Bronchitis Depression Diabetes GERD (gastroesophageal reflux disease) History of bipolar disorder HTN (hypertension) Previous known suicide attempt Schizophrenia Seizure Sleep apnea Ulcer UTI (urinary tract infection) Surgical History Surgical History History of bilateral hip replacements Social History Social History Smoking status: Never smoker Alcohol intake: current Substance use type: marijuana Gender identity (if verbalized by the patient): Male Exam Const: General: no acute distress, alert and ill appearing chronically Nutritional Appearance: obese morbidly obese Orientation/consciousness: patient oriented x3 HENMT: Other: significant tooth decay without significant erythema or swelling of the mucosa Eyes: Pupils: Equal, round and reactive pupils present Resp: Effort & Inspection: normal respiratory effort Auscultation: clear to auscultation bilaterally Cardio: Rate: regular rate Rhythm: regular rhythm GI: GI Palp: Yes Soft to palpation and No Tenderness to palpation present (GI) Neuro: General: patient oriented x3, moves all extremities and CN's II-XI intact bilaterally Speech: normal speech Extrem: General: normal to inspection and no edema Course Vital Signs Vital signs: Vital Signs Temperature 37.1 C 07/19/19 16:34 Pulse Rate 61 07/19/19 16:34 Respiratory Rate 18 07/19/19 16:34 Blood Pressure 140/62 07/19/19 16:34 Pulse Oximetry 100 07/19/19 16:34 Temperature 37.1 C 07/19/19 16:34 Pulse Rate 61 07/19/19 16:34 Respiratory Rate 18 07/19/19 16:34 Blood Pressure 140/62 07/19/19 16:34 Pulse Oximetry 100 07/19/19 16:34 Medical Decision Making MDM Narrative Medical decision making narrative: He does not have any consistent complaint that requires further evaluation at this time. He does have multiple areas that require dental attention. HIs chest pain has been worked up her numerous times in
[2019-07-19] MEDS: KETOROLAC 30 MG/ML VIAL (*BKC) IV PUSH (17:04)
--- NOTE | 2019-07-19 17:34 | ECG_ITS ---
Measurements Intervals [place] Rate: 51 P: 50 CT: 225 QRS: -9 QRSD: 105 T: 49 QT: 407 QTc: 377 Interpretive Statements SINUS BRADYCARDIA INCOMPLETE RIGHT BUNDLE BRANCH BLOCK BASELINE ARTIFACT- I, II, AVR, V6 BORDERLINE ECG Electronically Signed On 07-20-2019 6:45:05 CDT by Donte Sanchez D.O.
[2019-07-19 18:07] LABS: Glucose Point of Care 109 (65-105)
== END 2019-07-19 19:04 | disposition home or self-care (01) ==
PROVIDERS: Emergency Provider Emergency Medicine; PCP Internal Medicine
DX: K08.89 Other specified disorders of teeth and supporting structures (principal); R07.89 Other chest pain; I10 Essential (primary) hypertension; E11.9 Type 2 diabetes mellitus without complications; Z79.84 Long term (current) use of oral hypoglycemic drugs; M19.90 Unspecified osteoarthritis, unspecified site; F41.9 Anxiety disorder, unspecified; K21.9 Gastro-esophageal reflux disease without esophagitis; F31.9 Bipolar disorder, unspecified; F20.9 Schizophrenia, unspecified; G47.30 Sleep apnea, unspecified; Z87.440 Personal history of urinary (tract) infections; Z96.643 Presence of artificial hip joint, bilateral; R00.1 Bradycardia, unspecified; I45.10 Unspecified right bundle-branch block
CPT/HCPCS: 93005; 96374; 99284; J1885

== ENCOUNTER 2019-08-23 14:50 | Emergency (ER) | payer OTHER, SELFPAY ==
--- NOTE | ~2019-08-23 | XR_ITS ---
EXAMINATION: XR shoulder RT min 2V DATE: 08/23/2019 17:14 INDICATION: Right shoulder pain. TECHNIQUE: 4 views of right shoulder were obtained. COMPARISON: None. FINDINGS: Bone alignment is normal. No fracture. Joint spaces are well maintained. IMPRESSION: 1. Normal right shoulder. Reviewed, dictated and finalized at location A. IMPRESSION: 1. Normal right shoulder.
--- NOTE | ~2019-08-23 | XR_ITS ---
EXAMINATION: XR foot RT min 3V DATE: 08/23/2019 17:13 INDICATION: Right foot pain. TECHNIQUE: 4 views of right foot were obtained. COMPARISON: None. FINDINGS: There is dorsiflexion of the metatarsophalangeal joints and flexion of the interphalangeal joints. No fracture. Joint spaces are normal. There is an enthesophyte at posterior aspect of calcane al tuberosity. IMPRESSION: 1. No fracture. Reviewed, dictated and finalized at location A. IMPRESSION: 1. No fracture.
--- NOTE | ~2019-08-23 | XR_ITS ---
EXAMINATION: XR foot LT min 3V DATE: 08/23/2019 17:14 INDICATION: Left foot pain. TECHNIQUE: 4 views of left foot were obtained. COMPARISON: None. FINDINGS: There is dorsiflexion of the metatarsophalangeal joints and flexion of the interphalangeal joints. No fracture. Joint spaces are normal. There are enthesophytes at the posterior and plantar as pects of calcaneal tuberosity. IMPRESSION: 1. No fracture. Reviewed, dictated and finalized at location A. IMPRESSION: 1. No fracture.
--- NOTE | ~2019-08-23 | XR_ITS ---
EXAMINATION: XR ribs BI 3V w CXR 2V DATE: 08/23/2019 17:13 INDICATION: Anterior rib pain. TECHNIQUE: Frontal and lateral views of the chest and 3 views of the right ribs and 3 views of the le ft ribs were obtained. COMPARISON: Chest radiographs 07/05/2019 FINDINGS: CHEST TWO VIEWS: The chest demonstrates clear lungs without pneumonia, pleural effusion, or pneumotho rax. The heart size is normal. BILATERAL RIBS: There is no rib fracture. IMPRESSION: 1. No rib fracture. Reviewed, dictated and finalized at location A. IMPRESSION: 1. No rib fracture.
--- NOTE | ~2019-08-23 | XR_ITS ---
EXAMINATION: XR thoracic spine 3V DATE: 08/23/2019 17:14 INDICATION: Back pain. TECHNIQUE: 3 views of thoracic spine on 4 radiographs were obtained. COMPARISON: Chest 2 views 07/05/2019 FINDINGS: There is 8 degrees dextrocurvature of thoracic spine. There is mild chronic anterior wedgin g of multiple lower thoracic vertebral bodies associated with Schmorl's nodes. There is mildly decrea sed disc height at multiple levels in lower thoracic spine. There are endplate osteophytes at multipl e levels in lower thoracic spine. IMPRESSION: 1. Mild thoracic spondylosis. Reviewed, dictated and finalized at location A.
[2019-08-23 14:54] VITALS: BP 144/84; PULSE 63; RESP 20; TEMP 36.1; O2SAT 100
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
[2019-08-23] MEDS: ACETAMINOPHEN 500 MG TABLET 1000 MG PO (17:08)
== END 2019-08-23 18:43 | disposition home or self-care (01) ==
PROVIDERS: Emergency Provider Emergency Medicine; PCP Internal Medicine
DX: S29.012A Strain of muscle and tendon of back wall of thorax, initial encounter (principal); M47.814 Spondylosis without myelopathy or radiculopathy, thoracic region; Z79.84 Long term (current) use of oral hypoglycemic drugs; V68.6XXA Passenger in heavy transport vehicle injured in noncollision transport accident in traffic accident, initial encounter
CPT/HCPCS: 71046; 71110; 72072; 73030; 73630; 99284; A9270

== ENCOUNTER 2020-01-04 20:19 | Emergency (ER) | payer OTHER, SELFPAY ==
--- NOTE | ~2020-01-04 | CT_ITS ---
EXAMINATION: CT brain wo con EXAM DATE: 01/04/2020 20:49 INDICATION: Dizziness and trauma . TECHNIQUE: Spiral CT of the head was performed without contrast. Axial, coronal and sagittal images were reviewed. The dose-length product (DLP) for this examination was 605.33 mGy-cm. The exposure w as tailored according to patient size, and iterative reconstruction (ASIR) was used as additional dos e reduction technique. Comparison is made to prior examination from 07/05/2019. FINDINGS: There is no acute intraparenchymal hemorrhage. No evidence of intraparenchymal brain mass lesion. No evidence of acute infarction. There is no mass effect or midline shift. The ventricles are normal in size. There are no extra-axial collections. There are no acute calvarial fractures. T he orbits are unremarkable. Small left posterior scalp swelling. The visualized sinuses and mastoid air cells are well aerated. IMPRESSION: 1. No acute intracranial findings. 2. Small left posterior scalp swelling. Reviewed, dictated and finalized at location A.
[2020-01-04 20:23] VITALS: BP 132/92; PULSE 67; RESP 20; O2SAT 95
[2020-01-04 21:40] LABS: Basophils Absolute Auto 0.1 K/mm3 (0.0-0.1); Basophils Percent Auto 0.5 % (0.2-1.2); Eosinophils Absolute Auto 0.2 K/mm3 (0-0.3); Eosinophils Percent Auto 2.1 % (0-4.4); Immature Granulocyte Absolute 0.02 K/mm3 (0.00-0.031); Immature Granulocyte Percent A 0.2 % (0-0.5); Immature Platelet Fraction Pct 7.5 % (0.9-11.2); Lymphocytes Absolute Auto 2.17 K/mm3 (0.9-3.2); Lymphocytes Percent Auto 20.7 % (18.3-44.2); Mean Corpuscular HGB Conc 31.9 g/dl (32-36); Mean Corpuscular Volume 81.3 fl (80-100); Monocytes Absolute Auto 0.6 K/mm3 (0.1-0.6); Monocytes Percent Auto 5.8 % (2.6-8.5); Neutrophils Absolute Auto 7.4 K/mm3 (1.3-6.7); Neutrophils Percent Auto 70.7 % (45.5-73.1); Platelet Count Result 129 k/mm3 (150-375); Red Blood Count 5.78 M/mm3 (4.6-6.20); Red Cell Distribution Width 15.4 % (11.5-14.5); White Blood Count 10.5 K/mm3 (4.5-10.0)
[2020-01-04 21:51] LABS: Alanine Aminotransferase 64 U/L (4-50); Albumin Level 4.7 g/dL (3.5-5.1); Alkaline Phosphatase 101 U/L (38-126); Anion Gap 7 mmol/L (8-16); Aspartate Amino Transferase 49 U/L (17-59); Bilirubin,Total 0.7 mg/dL (0.2-1.3); Blood Urea Nitrogen 17 mg/dL (9-20); Carbon Dioxide 33 mmol/L (22-30); Chloride 100 mmol/L (98-107); Estimated CRCL calculation 221 ml/min; Estimated Glomerular Filt Rate > 60; Glucose 105 mg/dL (75-110); Potassium 3.9 mmol/L (3.4-5.0); Sodium 140 mmol/L (137-145)
[2020-01-04] MEDS: SODIUM CHLORIDE 0.9% IV 1,000 ML 999 ML IV CONT (22:56)
[2020-01-04 23:04] VITALS: BP 155/108; PULSE 56
[2020-01-04 23:06] VITALS: BP 146/89; PULSE 53
[2020-01-04 23:08] VITALS: BP 157/125; PULSE 69
[2020-01-04 23:44] LABS: Add Urine Microscopic? YES; Amorphous Sediment Urine Few; Appearance Urine Cloudy (Clear); Bilirubin Urine Negative (Negative); Blood Urine Negative (Negative); Color Urine Yellow (Yellow); Glucose Urine UA Negative (Negative); Ketones Urine Negative (Negative); Leukocyte Esterase Ur Negative LEU/UL (Negative); Mucus Urine Rare /lpf; Nitrate Urine Negative (Negative); Protein Urine 1+ mg/dL (Negative); Specific Grav Ur 1.021 (1.001-1.035); Squamous Epithelial Cell Urine Few /hpf (Few)
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
[2020-01-05] MEDS: ACETAMINOPHEN 500 MG TABLET 1000 MG PO (00:45)
== END 2020-01-05 00:57 | disposition home or self-care (01) ==
PROVIDERS: Emergency Provider Emergency Medicine; PCP Internal Medicine
DX: R42 Dizziness and giddiness (principal); M19.90 Unspecified osteoarthritis, unspecified site; F41.9 Anxiety disorder, unspecified; K21.9 Gastro-esophageal reflux disease without esophagitis; J45.909 Unspecified asthma, uncomplicated; I10 Essential (primary) hypertension; G47.30 Sleep apnea, unspecified; F31.9 Bipolar disorder, unspecified; F20.9 Schizophrenia, unspecified; Z96.643 Presence of artificial hip joint, bilateral
CPT/HCPCS: 36415; 70450; 80053; 81001; 85025; 85055; 96360; 99284; A9270; J7030

== ENCOUNTER 2020-01-30 21:13 | Emergency (ER) | payer OTHER, SELFPAY ==
--- NOTE | ~2020-01-30 | XR_ITS ---
EXAMINATION: XR elbow LT min 3V DATE: 01/30/2020 21:57 INDICATION: Left elbow injury with laceration TECHNIQUE: Anteroposterior, oblique and lateral views of the left elbow were obtained. COMPARISON: None. FINDINGS: Alignment is normal. No fracture or joint effusion. Joint spaces are normal. Soft tissues are unremar kable. IMPRESSION: 1. Negative left elbow radiographs. Reviewed, dictated and finalized at location . MECHANIC
[2020-01-30 21:30] VITALS: BP 121/93; PULSE 75; RESP 17; TEMP 36.9; O2SAT 100
--- NOTE | 2020-01-30 21:50 | ED.GENADULT ---
HPI - General Adult General Chief complaint: Psychiatric Symptoms <Syed Brantley MD - Last Filed: 01/31/20 07:02> Stated complaint: PSYCH <Syed Brantley MD - Last Filed: 01/31/20 07:02> Time Seen by Provider: 01/30/20 21:21 <Syed Brantley MD - Last Filed: 01/31/20 07:02> History of Present Illness HPI narrative: Patient is a 29-year-old gentleman who presents the emergency department with chief complaint of suicidal ideation. Patient states he was in an argument today with his parents and tried to cut himself with a razor. Patient states also he hit his elbow against a wall and reports that he still wants to harm himself patient called crisis and was told to come to our facility so the crisis could evaluate him. <Syed Brantley MD - Last Filed: 01/31/20 07:02> Related Data Home medications: Home Medications Medication Instructions Recorded Confirmed clonidine HCl 0.1 mg PO QID 02/01/19 divalproex 2,000 mg PO DAILY 02/01/19 07/05/19 famotidine 20 mg PO DAILY 02/01/19 gabapentin 300 mg PO TID 02/01/19 metformin 500 mg PO BID 02/01/19 naproxen 500 mg PO BID PRN 02/01/19 trazodone 100 mg PO HS 02/01/19 docusate sodium [DOK] PO 01/31/20 01/31/20 <Syed Brantley MD - Last Filed: 01/31/20 07:02> Allergies/adverse reactions: Allergies Allergy/AdvReac Type Severity Reaction Status Date / Time amoxicillin Allergy Intermediate Other Verified 01/31/20 04:12 red dye Allergy Intermediate Other Verified 01/31/20 04:12 latex Allergy Mild Rash Verified 01/31/20 04:12 ibuprofen AdvReac Mild Other Verified 01/31/20 04:12 <Syed Brantley MD - Last Filed: 01/31/20 07:02> Review of Systems Review of Systems: Narrative: CONSTITUTIONAL: Denies fever, chills, or sweats. EYES: Denies visual changes, redness, or discharge. ENT: Denies rhinorrhea, congestion, sore throat, or otalgia. CARDIOVASCULAR: Denies chest pain, palpitations, or edema. RESPIRATORY: Denies cough or dyspnea. GASTROINTESTINAL: Denies abdominal pain, nausea, vomiting, or diarrhea. GENITOURINARY: Denies dysuria or hematuria. SKIN: Denies rash or itching. MUSCULOSKELETAL: Denies back pain, joint pain, or myalgia. NEUROLOGIC: Denies headache, numbness, or weakness. PSYCHIATRIC: Denies anxiety or depression. <Syed Brantley MD - Last Filed: 01/31/20 07:02> All systems reviewed & are unremarkable except as noted in HPI and below <Syed Brantley MD - Last Filed: 01/31/20 07:02> PENDING SALE TO [facility] Past Medical History Medical History: Medical History (Updated 01/31/20 @ 04:21 by Syed Brantley MD) Anxiety Arthritis Asthma Bronchitis Depression Diabetes GERD (gastroesophageal reflux disease) History of bipolar disorder HTN (hypertension) Previous known suicide attempt Schizophrenia Seizure Sleep apnea Ulcer UTI (urinary tract infection) <Syed Brantley MD - Last Filed: 01/31/20 07:02> Surgical History Surgical History: Surgical History History of bilateral hip replacements <Syed Brantley MD - Last Filed: 01/31/20 07:02> Social History Social History: Social History Smoking status: Never smoker Alcohol intake: current Substance use type: marijuana Gender identity (if verbalized by the patient): Male <Syed Brantley MD - Last Filed: 01/31/20 07:02> Exam Narrative: Exam Narrative: GENERAL: Well-appearing, well-nourished, and in no acute distress. HEAD: Normocephalic, atraumatic. EYES: PERRLA and EOMI. ENT: Nares clear, no rhinorrhea or epistaxis. Mucous membranes moist. NECK: Supple. CHEST: Clear to auscultation. No respiratory distress. HEART: Regular rate and rhythm. No murmur heard. Normal peripheral pulses. ABDOMEN: Soft, nontender, nondistended, normal act
[2020-01-30 22:11] LABS: Basophils Absolute Auto 0.1 K/mm3 (0.0-0.1); Basophils Percent Auto 0.6 % (0.2-1.2); Eosinophils Absolute Auto 0.1 K/mm3 (0-0.3); Eosinophils Percent Auto 1.4 % (0-4.4); Hematocrit 44.1 % (42.0-52.0); Hemoglobin 14.1 g/dL (14.0-18.0); Immature Granulocyte Absolute 0.03 K/mm3 (0.00-0.031); Immature Granulocyte Percent A 0.3 % (0-0.5); Lymphocytes Absolute Auto 1.84 K/mm3 (0.9-3.2); Lymphocytes Percent Auto 19.5 % (18.3-44.2); Mean Corpuscular Hemoglobin 25.5 pg (26-34); Mean Corpuscular Volume 79.9 fl (80-100); Mean Platelet Volume 10.7 fl (7.4-10.4); Monocytes Absolute Auto 0.8 K/mm3 (0.1-0.6); Monocytes Percent Auto 8.5 % (2.6-8.5); Neutrophils Absolute Auto 6.6 K/mm3 (1.3-6.7); Neutrophils Percent Auto 69.7 % (45.5-73.1); Platelet Count Result 141 k/mm3 (150-375); Red Blood Count 5.52 M/mm3 (4.6-6.20); Red Cell Distribution Width 14.1 % (11.5-14.5); White Blood Count 9.4 K/mm3 (4.5-10.0)
[2020-01-30 22:24] LABS: Add Urine Microscopic? YES; Appearance Urine Clear (Clear); Bilirubin Urine Negative (Negative); Blood Urine 1+ (Negative); Color Urine Yellow (Yellow); Glucose Urine UA Negative (Negative); Ketones Urine Negative (Negative); Leukocyte Esterase Ur Negative LEU/UL (Negative); Mucus Urine Rare /lpf; Nitrate Urine Negative (Negative); Protein Urine 2+ mg/dL (Negative); Squamous Epithelial Cell Urine Few /hpf (Few); WBC Urine 0-3 /hpf
[2020-01-30 22:26] LABS: Acetaminophen < 10 ug/mL (10-30); Ethanol < 10 mg/dL (<10); Salicylate < 1.0 mg/dL (2-20)
[2020-01-30 22:37] LABS: Amphetamine Screen Urine Negative (Negative); Barbiturate Screen Urine Negative (Negative); Benzodiazepines Screen Urine Negative (Negative); Cannabinoid Screen Urine Negative (Negative); Cocaine Screen Urine Negative (Negative); Methadone Screen Urine Negative (Negative); Opiate Screen Urine Negative (Negative); Phencyclidine Screen Urine Negative (Negative)
[2020-01-30 23:11] LABS: Alanine Aminotransferase 21 U/L (4-50); Albumin Level 4.3 g/dL (3.5-5.1); Alkaline Phosphatase 102 U/L (38-126); Anion Gap 10 mmol/L (8-16); Aspartate Amino Transferase 30 U/L (17-59); Bilirubin,Total 0.5 mg/dL (0.2-1.3); Blood Urea Nitrogen 19 mg/dL (9-20); Calcium 9.4 mg/dL (8.4-10.2); Carbon Dioxide 26 mmol/L (22-30); Chloride 106 mmol/L (98-107); Estimated CRCL calculation 209 ml/min; Estimated Glomerular Filt Rate > 60; Glucose 119 mg/dL (75-110); Sodium 142 mmol/L (137-145)
[2020-01-31 03:39] VITALS: BP 139/112; PULSE 58; RESP 18; O2SAT 95
--- NOTE | 2020-01-31 03:56 | PC.NURSE ---
[facility] intake, returned call and will not consider patient until COVID testing result is obtained. Informed them that the patient has been swabbed and will notify them when result available.
--- NOTE | 2020-01-31 04:21 | PC.NURSE ---
[facility] in [place] refused pt r/t to his iq
[2020-01-31] MEDS: traZODone HCL 50 MG TABLET 100 MG PO (04:48)
[2020-01-31] MEDS: GABAPENTIN 300 MG CAPSULE PO (04:48)
[2020-01-31] MEDS: DIVALPROEX SODIUM ER 500 MG TAB 2000 MG PO (04:48)
[2020-01-31 06:09] VITALS: BP 143/82; PULSE 64; RESP 18; O2SAT 100
[2020-01-31 19:25] LABS: SARS-CoV-2 RNA PCR Negative
== END 2020-01-31 13:16 | disposition home or self-care (01) ==
PROVIDERS: Emergency Provider Emergency Medicine; PCP Internal Medicine
DX: R45.851 Suicidal ideations (principal); F32.9 Major depressive disorder, single episode, unspecified; M19.90 Unspecified osteoarthritis, unspecified site; J45.909 Unspecified asthma, uncomplicated; K21.9 Gastro-esophageal reflux disease without esophagitis; E11.9 Type 2 diabetes mellitus without complications; I10 Essential (primary) hypertension; F41.9 Anxiety disorder, unspecified; F20.9 Schizophrenia, unspecified; G47.30 Sleep apnea, unspecified; Z87.440 Personal history of urinary (tract) infections; Z96.643 Presence of artificial hip joint, bilateral
CPT/HCPCS: 36415; 73080; 80053; 80307; 81001; 84443; 85025; 85055; 87635; 99284; A9270; C9803; U0003

== ENCOUNTER 2020-03-04 13:12 | Emergency (ER) | payer OTHER, SELFPAY ==
--- NOTE | ~2020-03-04 | XR_ITS ---
EXAMINATION: XR foot RT min 3V DATE: 03/04/2020 14:01 INDICATION: Right foot pain TECHNIQUE: Dorsoplantar, lateral, and oblique views of the right foot were obtained. COMPARISON: 08/23/2019 FINDINGS: There is plantar soft tissue swelling the foot projecting near the metatarsal heads on the lateral view. No radiopaque foreign body is identified. Bone alignment is normal. There is no fractur e. IMPRESSION: 1. Soft tissue swelling without evidence of acute osseous abnormality or radiopaque foreign body. Reviewed, dictated and finalized at location A. OOR STUDIES PROFESSOR IMPRESSION: 1. Soft tissue swelling without evidence of acute osseous abnormality or radiop aque foreign body.
[2020-03-04 13:17] VITALS: BP 142/95; PULSE 60; RESP 18; TEMP 36.2; O2SAT 96
--- NOTE | 2020-03-04 13:42 | ED.GENADULT ---
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 Patient is unsure as to how he cut his foot Related Data Home Medications Medication Instructions Recorded Confirmed divalproex 2,000 mg PO DAILY 02/01/19 07/05/19 gabapentin 300 mg PO TID 02/01/19 metformin 500 mg PO BID 02/01/19 naproxen 500 mg PO BID PRN 02/01/19 docusate sodium [DOK] PO 01/31/20 01/31/20 diphenhydramine HCl [Benadryl] 25 mg PO HS 03/04/20 03/04/20 escitalopram oxalate mg 03/04/20 trazodone 03/04/20 Allergies Allergy/AdvReac Type Severity Reaction Status Date / Time amoxicillin Allergy Intermediate Other Verified 03/04/20 13:40 red dye Allergy Intermediate Other Verified 03/04/20 13:40 latex Allergy Mild Rash Verified 01/31/20 04:12 ibuprofen AdvReac Mild Other Verified 03/04/20 13:40 Review of Systems Review of Systems: All systems reviewed & are unremarkable except as noted in HPI and below PMFSH Past Medical History Medical History (Updated 03/04/20 @ 14:17 by Ayaan Mtz PA-C) Anxiety Arthritis Asthma Bronchitis Depression Diabetes GERD (gastroesophageal reflux disease) History of bipolar disorder HTN (hypertension) Previous known suicide attempt Schizophrenia Seizure Sleep apnea Ulcer UTI (urinary tract infection) Surgical History Surgical History History of bilateral hip replacements Social History Social History Smoking status: Never smoker Alcohol intake: current Substance use type: marijuana Gender identity (if verbalized by the patient): Male Exam Narrative: Exam Narrative: GENERAL: Well-appearing, obese d, and in no acute distress. HEAD: Normocephalic, atraumatic. EYES: PERRLA and EOMI. ENT: Nares clear, no rhinorrhea or epistaxis. Mucous membranes moist. EXTREMITIES: Normal range of motion. No edema. SKIN: Warm, dry, no rash. 2 cm skin avulsion plantar surface right foot from the forefoot and between the fourth and fifth digits no cellulitic changes no drainage no foreign bodies NEURO: No focal deficits. Alert and oriented x3. Neurovascularly intact PSYCH: Normal mood and affect. Course Course Emergency Course: Patient with superficial wound in the room in no distress felt appropriate for discharge home for further evaluation on outpatient basis Vital Signs Vital signs: Vital Signs Temperature 97.1 F L 03/04/20 13:17 Pulse Rate 60 03/04/20 13:17 Respiratory Rate 18 03/04/20 13:17 Blood Pressure 142/95 H 03/04/20 13:17 Pulse Oximetry 96 03/04/20 13:17 Temperature 97.1 F L 03/04/20 13:17 Pulse Rate 60 03/04/20 13:17 Respiratory Rate 18 03/04/20 13:17 Blood Pressure 142/95 H 03/04/20 13:17 Pulse Oximetry 96 03/04/20 13:17 Medical Decision Making MDM Narrative Medical decision making narrative: Patients injury or pain is consistent with musculoskeletal etiology. No signs of neurological or vascular compromise on exam. Compartments and tisues are soft without signs of compartment syndrome. Pain is felt appropriate for further evaluation on an outpatient basis. Vital Signs Vital Signs: Vital Signs Temperature 97.1 F L 03/04/20 13:17 Pulse Rate 60 03/04/20 13:17 Respiratory Rate 18 03/04/20 13:17 Blood Pressure 142/95 H 03/04/20 13:17 Pulse Oximetry 96 03/04/20 13:17
[2020-03-04] MEDS: TETANUS,DIPHTHERIA,AC PERTUSSIS ADULT (0.5 ML) BOOSTRIX IM (14:07)
[2020-03-04 15:12] VITALS: BP 104/48; PULSE 50; RESP 18; TEMP 36.3; O2SAT 98
== END 2020-03-04 15:30 | disposition home or self-care (01) ==
PROVIDERS: Emergency Provider Emergency Medicine; PCP Internal Medicine
DX: S91.311A Laceration without foreign body, right foot, initial encounter (principal); I10 Essential (primary) hypertension; E11.9 Type 2 diabetes mellitus without complications; J45.909 Unspecified asthma, uncomplicated; K21.9 Gastro-esophageal reflux disease without esophagitis; F41.9 Anxiety disorder, unspecified; G47.30 Sleep apnea, unspecified; M19.90 Unspecified osteoarthritis, unspecified site; F31.9 Bipolar disorder, unspecified; F20.9 Schizophrenia, unspecified; Z79.84 Long term (current) use of oral hypoglycemic drugs; Z23 Encounter for immunization; Z87.440 Personal history of urinary (tract) infections; X58.XXXA Exposure to other specified factors, initial encounter
CPT/HCPCS: 73630; 90471; 90715; 99283

== ENCOUNTER 2020-03-06 08:10 | Emergency (ER) | payer OTHER, SELFPAY ==
[2020-03-06] VITALS (15 sets, daily range): BP systolic 139–142; BP diastolic 70–111; PULSE 45–80; RESP 8–22; TEMP 36.6–37; O2SAT 94–99
--- NOTE | ~2020-03-06 | XR_ITS ---
EXAMINATION: XR chest 1V portable EXAM DATE: 03/06/2020 08:55 INDICATION: Chest pain. TECHNIQUE: Portable AP frontal chest x-ray was obtained. Comparison is made to prior examination from 08/23/2019. FINDINGS: The lungs are clear. There are no pleural effusions. The cardiomediastinal silhouette is within normal limits. There is no pneumothorax suspected. The bones and soft tissues are unremarkab le. IMPRESSION: No acute cardiopulmonary findings. Reviewed, dictated and finalized at location A. BLENDER
--- NOTE | 2020-03-06 08:25 | ECG_ITS ---
Measurements Intervals [place] Rate: 49 P: 65 ID: [id number] QRS: 28 QRSD: 108 T: 31 QT: 409 QTc: 371 Interpretive Statements SINUS BRADYCARDIA WITH FIRST DEGREE AV BLOCK BORDERLINE T WAVE ABNORMALITY- ANTERIOR LEADS BASELINE ARTIFACT- I, II, AVR ABNORMAL ECG Electronically Signed On 03-06-2020 11:15:20 PERMANENT MOLD SUPERVISOR by Donte Sanchez D.O.
--- NOTE | 2020-03-06 08:29 | ED.CHESTPAIN ---
HPI - Chest Pain General Chief Complaint: Chest Pain Stated Complaint: CP Time Seen by Provider: 03/06/20 08:14 Source: patient Mode of arrival: ambulatory Limitations: no limitations History of Present Illness HPI narrative: This patient is a 29 year old male with history of hypertension, depression and anxiety who presents for evaluation of right chest pain. He states he developed right anterior chest pain at midnight. He describes this pain as sharp and tightness. THis pain has been constant and it radiates to right arm. He does not think it is muscular although his pain is worse with moving his right arm. He denies associated trauma. He reports shortness of breath and dizziness. He denies cough, fever or chills. He reports nausea and vomiting. Related Data Home Medications Medication Instructions Recorded Confirmed divalproex 2,000 mg PO DAILY 02/01/19 07/05/19 gabapentin 300 mg PO TID 02/01/19 metformin 500 mg PO BID 02/01/19 naproxen 500 mg PO BID PRN 02/01/19 docusate sodium [DOK] PO 01/31/20 01/31/20 diphenhydramine HCl [Benadryl] 25 mg PO HS 03/04/20 03/04/20 escitalopram oxalate mg 03/04/20 trazodone 03/04/20 Allergies Allergy/AdvReac Type Severity Reaction Status Date / Time amoxicillin Allergy Intermediate Other Verified 03/04/20 13:40 red dye Allergy Intermediate Other Verified 03/04/20 13:40 latex Allergy Mild Rash Verified 01/31/20 04:12 ibuprofen AdvReac Mild Other Verified 03/04/20 13:40 Review of Systems Review of Systems: All systems reviewed & are unremarkable except as noted in HPI and below Constitutional: Constitutional: Denies chills and Denies fever(s) Cardiovascular: Cardiovascular: Reports chest pain, Reports radiating jaw, neck or arm pain and Denies slow heart rate Respiratory: Respiratory: Denies cough, Reports dyspnea and Denies wheezing Gastrointestinal: Gastrointestinal: Denies abdominal pain, Reports nausea and Reports vomiting PMF Past Medical History Medical History (Updated 03/06/20 @ 12:36 by Lyubov Durham MD) Anxiety Arthritis Asthma Bronchitis Depression Diabetes GERD (gastroesophageal reflux disease) History of bipolar disorder HTN (hypertension) Previous known suicide attempt Schizophrenia Seizure Sleep apnea Ulcer UTI (urinary tract infection) Surgical History Surgical History History of bilateral hip replacements Social History Social History Smoking status: Never smoker Alcohol intake: current Substance use type: marijuana Gender identity (if verbalized by the patient): Male Exam Const: General: no acute distress and alert Nutritional Appearance: obese Orientation/consciousness: patient oriented x3 HENMT: Face and sinus: face symmetric Eyes: EOM: EOMs intact bilaterally Chest: Chest palpation & inspection: normal inspection of the chest Other: reproducible pain with right arm movement Resp: Effort & Inspection: normal respiratory effort and no retractions Auscultation: clear to auscultation bilaterally Cardio: Rate: regular rate Rhythm: regular rhythm Heart sounds: no murmurs GI: GI Palp: Yes Soft to palpation, No Tenderness to palpation present (GI) and No Guarding due to palpation present (GI) Auscultation: normal bowel sounds Skin: General skin exam: normal color Rashes: no rashes Neuro: General: patient oriented x3 and moves all extremities Psych: Mental Status: mental status grossly normal Affect: normal affect Course Reevaluation(s) Reevaluation #1: Patient has had no complaints. He is asking to be discharge. His evaluation has been unremarkable other than bradycardia. Date: 03/06/20 Time: 12:37 Vital Signs Vital signs: Vital Signs Pulse Oximetry 94 03/06/20 08:13 Temperature 97.9 F 03/06/20 12:38 Pulse Rate 68 03/06/20 12:38 Respiratory Rate 20 03/06/20
--- NOTE | 2020-03-06 08:45 | PC.NURSE ---
patient here with CP. see initial assessments. EKG done. labs drawn. SL inserted by EMS. patient on cardiac catheterization technician. has call light in reach.
[2020-03-06 08:56] LABS: Basophils Absolute Auto 0.1 K/mm3 (0.0-0.1); Basophils Percent Auto 0.7 % (0.2-1.2); Eosinophils Absolute Auto 0.2 K/mm3 (0-0.3); Eosinophils Percent Auto 2.2 % (0-4.4); Hemoglobin 13.2 g/dL (14.0-18.0); Immature Granulocyte Absolute 0.02 K/mm3 (0.00-0.031); Immature Granulocyte Percent A 0.3 % (0-0.5); Lymphocytes Absolute Auto 2.25 K/mm3 (0.9-3.2); Lymphocytes Percent Auto 31.3 % (18.3-44.2); Mean Corpuscular HGB Conc 31.4 g/dl (32-36); Mean Corpuscular Hemoglobin 25.7 pg (26-34); Mean Corpuscular Volume 81.9 fl (80-100); Mean Platelet Volume 12.2 fl (7.4-10.4); Monocytes Absolute Auto 0.6 K/mm3 (0.1-0.6); Monocytes Percent Auto 8.1 % (2.6-8.5); Neutrophils Absolute Auto 4.1 K/mm3 (1.3-6.7); Neutrophils Percent Auto 57.4 % (45.5-73.1); Platelet Count Result 96 k/mm3 (150-375); Red Blood Count 5.13 M/mm3 (4.6-6.20); Red Cell Distribution Width 13.9 % (11.5-14.5); White Blood Count 7.2 K/mm3 (4.5-10.0)
[2020-03-06] MEDS: ONDANSETRON INJ 4 MG/2 ML VIAL IV PUSH (09:06)
[2020-03-06 09:10] LABS: Alanine Aminotransferase 17 U/L (4-50); Albumin Level 3.4 g/dL (3.5-5.1); Alkaline Phosphatase 108 U/L (38-126); Anion Gap 4 mmol/L (8-16); Aspartate Amino Transferase 22 U/L (17-59); Bilirubin,Total 0.3 mg/dL (0.2-1.3); Blood Urea Nitrogen 11 mg/dL (9-20); Calcium 8.6 mg/dL (8.4-10.2); Carbon Dioxide 30 mmol/L (22-30); Chloride 105 mmol/L (98-107); D Dimer 0.27 ug/mL (<0.48); Estimated CRCL calculation 255 ml/min; Estimated Glomerular Filt Rate > 60; Glucose 122 mg/dL (75-110); Potassium 3.6 mmol/L (3.4-5.0); Sodium 139 mmol/L (137-145)
--- NOTE | 2020-03-06 09:16 | PC.NURSE ---
resting on stretcher. no distress. 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 all tests resulted. waiting for further orders from provider vs discharge.
[2020-03-06 09:22] LABS: Troponin I < 0.012 ng/mL (0.000-0.034)
--- NOTE | 2020-03-06 11:20 | PC.NURSE ---
patient resting on stretcher. removed monitors to ambulate to restroom. waiting for disposition.
--- NOTE | 2020-03-06 11:53 | PC.NURSE ---
patient's repeat trop being drawn now.
[2020-03-06 12:34] LABS: Troponin I < 0.012 ng/mL (0.000-0.034)
--- NOTE | 2020-03-06 12:35 | PC.NURSE ---
patient wants to go. states he won't have a ride much longer. repeat trop just resulted. waiting for MD to do discharge paperwork.
== END 2020-03-06 12:39 | disposition home or self-care (01) ==
PROVIDERS: Emergency Provider General Practice; PCP Internal Medicine
DX: R07.89 Other chest pain (principal); I10 Essential (primary) hypertension; F41.9 Anxiety disorder, unspecified; F32.9 Major depressive disorder, single episode, unspecified; J45.909 Unspecified asthma, uncomplicated; M19.90 Unspecified osteoarthritis, unspecified site; E11.9 Type 2 diabetes mellitus without complications; K21.9 Gastro-esophageal reflux disease without esophagitis; F20.9 Schizophrenia, unspecified; G47.30 Sleep apnea, unspecified; Z87.440 Personal history of urinary (tract) infections; Z96.643 Presence of artificial hip joint, bilateral; R00.1 Bradycardia, unspecified; I44.0 Atrioventricular block, first degree; Z79.84 Long term (current) use of oral hypoglycemic drugs
CPT/HCPCS: 36415; 71045; 80053; 84484; 85025; 85380; 93005; 96374; 99284; J2405

== ENCOUNTER 2020-04-10 09:40 | Emergency (ER) | payer OTHER, SELFPAY ==
[2020-04-10] VITALS (14 sets, daily range): BP systolic 96–130; BP diastolic 34–76; PULSE 47–76; RESP 8–24; TEMP 36.6; O2SAT 96–99
--- NOTE | ~2020-04-10 | XR_ITS ---
EXAMINATION: XR chest 2V DATE: 04/10/2020 11:43 INDICATION: Syncope. TECHNIQUE: Frontal and lateral views of the chest were obtained. COMPARISON: Chest single view 03/06/2020 FINDINGS: The chest demonstrates clear lungs without pneumonia, pleural effusion, or pneumothorax. Th e heart size is normal. IMPRESSION: 1. No acute cardiopulmonary disease. Reviewed, dictated and finalized at location A. LOG SPECIALIST
--- NOTE | ~2020-04-10 | CT_ITS ---
EXAMINATION: CT brain wo con DATE: 04/10/2020 11:34 INDICATION: Head injury. TECHNIQUE: Computed tomography (CT) of the head was performed without intravenous contrast. The mA wa s adjusted according to patient size. Iterative reconstruction technique was employed. The dose-lengt h product was 605.33 mGy-cm. COMPARISON: Head CT 01/04/2020 FINDINGS: Motion artifact is noted. There is no intracranial hemorrhage, acute infarction, or abnorma l intracranial mass lesion. The ventricles are normal in size. The orbits are normal. There is mild m ucosal thickening in the ethmoid sinuses. The mastoid air cells are normal. IMPRESSION: 1. Normal brain. Reviewed, dictated and finalized at location A. ITORY ACCOUNT EXECUTIVE IMPRESSION: 1. Normal brain.
--- NOTE | ~2020-04-10 | CT_ITS ---
EXAMINATION: CT facial & cervical spine wo DATE: 04/10/2020 11:34 INDICATION: Head injury. TECHNIQUE: Computed tomography (CT) of the maxillofacial region and cervical spine was performed with out intravenous contrast. Automated exposure control and iterative reconstruction technique were empl oyed. The dose-length product was 624.73 mGy-cm. COMPARISON: None FINDINGS: MAXILLOFACIAL CT: There is a deviation of superior nasal septum. No fracture. There is extensive dental disease. The or bits are normal. CERVICAL SPINE CT: There is mild kyphosis of upper cervical spine. Vertebral body heights are normal. There is mildly de creased disc height at C4-C5 and C5-C6. The following disc levels are specifically discussed: C2-C3: There is mild bilateral uncovertebral joint osteoarthritis. There is mild bilateral facet join t osteoarthritis. There is no neural foraminal stenosis. There is no central canal stenosis. C3-C4: There is mild bilateral uncovertebral joint osteoarthritis. There is mild left facet joint ost eoarthritis. There is moderate right and mild left neural foraminal stenosis. There is mild central c anal stenosis. C4-C5: There is mild bilateral uncovertebral joint osteoarthritis. There is no facet joint osteoarthr itis. There is mild bilateral neural foraminal stenosis. There is mild central canal stenosis. C5-C6: There is mild bilateral uncovertebral joint osteoarthritis. There is mild left facet joint ost eoarthritis. There is no neural foraminal stenosis. There is mild central canal stenosis. C6-C7: There is no uncovertebral joint osteoarthritis. There is mild bilateral facet joint osteoarthr itis. There is no neural foraminal stenosis. There is mild central canal stenosis. C7-T1: There is no uncovertebral joint osteoarthritis. There is severe right and moderate left facet joint osteoarthritis. There is mild bilateral neural foraminal stenosis. There is mild central canal stenosis. IMPRESSION: 1. No fracture. 2. Mild cervical spondylosis. 3. Extensive dental disease. Reviewed, dictated and finalized at location A. S SUPPORT TECHNICIAN
--- NOTE | 2020-04-10 10:50 | ECG_ITS ---
Measurements Intervals [place] Rate: 55 P: 38 DC: 200 QRS: 13 QRSD: 102 T: 27 QT: 414 QTc: 398 Interpretive Statements SINUS BRADYCARDIA BORDERLINE AV CONDUCTION DELAY INCOMPLETE RIGHT BUNDLE BRANCH BLOCK BASELINE ARTIFACT- I, III, AVL, V1-V5 BORDERLINE ECG Electronically Signed On 04-10-2020 11:31:42 SENIOR ENERGY TRADER by Donte Sanchez D.O.
--- NOTE | 2020-04-10 10:51 | ED.SYNCOPE ---
HPI - Syncope General Chief Complaint: Head Injury <Lilibeth Cabrera PA-C - Last Filed: 04/10/20 12:35> Stated Complaint: lightheaded <CHARAN Curiel Last Filed: 04/10/20 12:35> Time Seen by Provider: 04/10/20 10:14 <CHARAN Curiel Last Filed: 04/10/20 12:35> Source: patient <CHARAN Curiel Last Filed: 04/10/20 12:35> Mode of arrival: EMS <CHARAN Curiel Last Filed: 04/10/20 12:35> Limitations: no limitations <Lilibeth Cabrera PA-C - Last Filed: 04/10/20 12:35> History of Present Illness HPI narrative: This is a 29-year-old male that presents to emergency department after syncopal episode today. Reports he was sitting in a chair at the police station and started to feel lightheaded and passed out. Reports since he has had a headache and pain in his neck. Also reports an injury recently and that he has a fracture of one of his facial bones. Denies fever, vision changes, vomiting, numbness, or weakness. <CHARAN Curiel Last Filed: 04/10/20 12:35> Related Data Home Medications: Home Medications Medication Instructions Recorded Confirmed divalproex 2,000 mg PO DAILY 02/01/19 07/05/19 gabapentin 300 mg PO TID 02/01/19 metformin 500 mg PO BID 02/01/19 docusate sodium [DOK] PO 01/31/20 01/31/20 diphenhydramine HCl [Benadryl] 25 mg PO HS 03/04/20 03/04/20 escitalopram oxalate mg 03/04/20 trazodone 03/04/20 cetirizine mg 04/10/20 prazosin 04/10/20 <CHARAN Curiel Last Filed: 04/10/20 12:35> Allergies/Adverse Reactions: Allergies Allergy/AdvReac Type Severity Reaction Status Date / Time amoxicillin Allergy Intermediate Other Verified 04/10/20 09:49 red dye Allergy Intermediate Other Verified 04/10/20 09:49 latex Allergy Mild Rash Verified 04/10/20 09:49 ibuprofen AdvReac Mild Other Verified 04/10/20 09:49 <Lilibeth Cabrera PA-C - Last Filed: 04/10/20 12:35> Review of Systems Review of Systems: Narrative: CONSTITUTIONAL: Denies fever EYES: Denies visual changes CARDIOVASCULAR: Denies chest pain, palpitations RESPIRATORY: Denies dyspnea. GASTROINTESTINAL: Denies vomiting MUSCULOSKELETAL: Reports joint pain, and myalgia. NEUROLOGIC: Reports headache. Denies numbness, or weakness. <Lilibeth Cabrera PA-C - Last Filed: 04/10/20 12:35> All systems reviewed & are unremarkable except as noted in HPI and below <Lilibeth Cabrera PA-C - Last Filed: 04/10/20 12:35> [facility] Past Medical History Medical History: Medical History (Updated 04/10/20 @ 12:17 by Lilibeth Cabrera PA-C) Anxiety Arthritis Asthma Bronchitis Depression Diabetes GERD (gastroesophageal reflux disease) History of bipolar disorder HTN (hypertension) Previous known suicide attempt Schizophrenia Seizure Sleep apnea Ulcer UTI (urinary tract infection) <Lilibeth Cabrera PA-C - Last Filed: 04/10/20 12:35> Surgical History Surgical History: Surgical History History of bilateral hip replacements <Lilibeth Cabrera PA-C - Last Filed: 04/10/20 12:35> Social History Social History: Social History Smoking status: Never smoker Alcohol intake: current Substance use type: marijuana Gender identity (if verbalized by the patient): Female <Lilibeth Cabrera PA-C - Last Filed: 04/10/20 12:35> Exam Narrative: Exam Narrative: GENERAL: Well-appearing, obese, and in no acute distress. HEAD: Normocephalic, atraumatic. EYES: PERRLA and EOMI. ENT: Nares clear, no rhinorrhea or epistaxis. Mucous membranes moist. Oropharynx without tonsillar hypertrophy exudate or other lesions. Bilateral TMs pearly horowitz non-bulging NECK: Supple. No adenopathy or masses. CHEST: Clear to auscultation. No respiratory distress. No wheezes rales or rhonchi HEART: Regular rate and rhythm. No murmur heard. Normal peripheral pulses. BACK:
[2020-04-10 11:18] LABS: Basophils Absolute Auto 0.1 K/mm3 (0.0-0.1); Basophils Percent Auto 0.6 % (0.2-1.2); Eosinophils Absolute Auto 0.2 K/mm3 (0-0.3); Eosinophils Percent Auto 2.4 % (0-4.4); Hematocrit 41.8 % (42.0-52.0); Hemoglobin 13.4 g/dL (14.0-18.0); Immature Granulocyte Absolute 0.02 K/mm3 (0.00-0.031); Immature Granulocyte Percent A 0.2 % (0-0.5); Immature Platelet Fraction Pct 6.7 % (0.9-11.2); Lymphocytes Absolute Auto 1.84 K/mm3 (0.9-3.2); Lymphocytes Percent Auto 22.1 % (18.3-44.2); Mean Corpuscular HGB Conc 32.1 g/dl (32-36); Mean Corpuscular Hemoglobin 26.2 pg (26-34); Mean Corpuscular Volume 81.8 fl (80-100); Mean Platelet Volume 12.1 fl (7.4-10.4); Monocytes Absolute Auto 0.6 K/mm3 (0.1-0.6); Monocytes Percent Auto 7.3 % (2.6-8.5); Neutrophils Absolute Auto 5.6 K/mm3 (1.3-6.7); Neutrophils Percent Auto 67.4 % (45.5-73.1); Platelet Count Result 116 k/mm3 (150-375); Red Blood Count 5.11 M/mm3 (4.6-6.20); White Blood Count 8.3 K/mm3 (4.5-10.0)
[2020-04-10 11:29] LABS: Prothrombin Time 13.7 Seconds (11.1-14.7)
[2020-04-10 11:30] LABS: Partial Thromboplastin Time 29.1 SECONDS (22.3-36.8)
[2020-04-10 12:14] LABS: Anion Gap 3 mmol/L (8-16); Blood Urea Nitrogen 11 mg/dL (9-20); Calcium 8.3 mg/dL (8.4-10.2); Carbon Dioxide 31 mmol/L (22-30); Chloride 104 mmol/L (98-107); Estimated CRCL calculation 258 ml/min; Estimated Glomerular Filt Rate > 60; Glucose 114 mg/dL (75-110); Potassium 3.9 mmol/L (3.4-5.0); Sodium 138 mmol/L (137-145)
[2020-04-10 12:26] LABS: Troponin I < 0.012 ng/mL (0.000-0.034)
== END 2020-04-10 12:51 | disposition home or self-care (01) ==
PROVIDERS: Physician Assistant; Emergency Provider General Practice
DX: R55 Syncope and collapse (principal); J45.909 Unspecified asthma, uncomplicated; E11.9 Type 2 diabetes mellitus without complications; I10 Essential (primary) hypertension; K21.9 Gastro-esophageal reflux disease without esophagitis; M19.90 Unspecified osteoarthritis, unspecified site; G47.30 Sleep apnea, unspecified; F31.9 Bipolar disorder, unspecified; F20.9 Schizophrenia, unspecified; F41.9 Anxiety disorder, unspecified; Z87.440 Personal history of urinary (tract) infections; Z96.643 Presence of artificial hip joint, bilateral; M47.812 Spondylosis without myelopathy or radiculopathy, cervical region; R00.1 Bradycardia, unspecified; I45.10 Unspecified right bundle-branch block; R94.31 Abnormal electrocardiogram [ECG] [EKG]; Z79.84 Long term (current) use of oral hypoglycemic drugs
CPT/HCPCS: 36415; 70450; 70486; 71046; 72125; 80048; 84484; 85025; 85055; 85610; 85730; 93005; 96365; 99284; J0131

== ENCOUNTER 2020-05-29 23:19 | Emergency (ER) | payer OTHER, SELFPAY ==
--- NOTE | ~2020-05-29 | CT_ITS ---
EXAMINATION: CT brain wo con DATE: 05/30/2020 00:34 INDICATION: Hallucinations TECHNIQUE: Computed tomography (CT) of the head was performed without intravenous contrast. Sagittal and coronal reconstructions were performed. The mA was adjusted according to patient size. Iterative reconstruction technique was employed. The dose-length product was 605.33 mGy-cm. COMPARISON: head CT dated 04/10/2020 FINDINGS: No acute intracranial hemorrhage, acute infarction or abnormal extra axial fluid collection. Ventricl es are normal and symmetric. No mass/mass effect. The orbits, paranasal sinuses and mastoid air cells are normal. IMPRESSION: 1. Normal head CT. Reviewed, dictated and finalized at location A. IMPRESSION: 1. Normal head CT.
--- NOTE | 2020-05-29 23:13 | PC.NURSE ---
Pt presents to ED with EMS with complaints of difficulty getting med prescriptions filled. Per EMS pt is having auditory hallucinations that are telling him to hurt his egg caser. Pt denies suicidal ideations at this time and is calm and cooperative at this time.
[2020-05-29 23:26] VITALS: BP 143/86; PULSE 63; RESP 20; TEMP 36.7; O2SAT 99
--- NOTE | 2020-05-29 23:36 | PC.NURSE ---
EDMD presented to bedside and pt placed on suicidal/homicidal precautions. Pt placed in gown as he cannot properly fit paper scrubs. Pt body and belongings searched for weapons. Pt clothing items, cell phone, wallet, shoes and coat placed in personal belongings bags and removed from room and placed in hernandez c closet as pt belongings cabinet is full. Pt denies suicidal ideations at this time and insists that he is homicidal towards his piano case and bench assembler who failed to help him refill his prescription medications. Pt is alert and oriented x4 with no complaints or concerns voiced at this time. Pt is allowed to keep television remote at this time. Sitter is present at bedside.
--- NOTE | 2020-05-29 23:44 | ED.PSYCH ---
HPI - Psych General Chief Complaint: Psychiatric Symptoms <Isaiah Lake DO - Last Filed: 05/30/20 22:25> Stated Complaint: psych <Isaiah Lake DO - Last Filed: 05/30/20 22:25> Time Seen by Provider: 05/29/20 23:37 <Isaiah Lake DO - Last Filed: 05/30/20 22:25> Source: RN notes reviewed <Isaiah Lake DO - Last Filed: 05/30/20 22:25> History of Present Illness HPI Narrative: Patient presents to emergency department from home via EMS for psychiatric evaluation. Patient states he was recently at [facility] for psychiatry and was discharged since that time he had melatonin added onto his medications on top of the trazodone he states that his machine operator general who told him that he had given him the melatonin but the patient states that he never received the melatonin. He states he confronted the case therapist about this several days ago and was told he was already given it. He states that he has been unable to sleep over the past 4 days that he is not had his melatonin states he is beginning to develop hallucinations with this. He states that he is seeing things in different colors and hearing voices. He states the voices are telling him to harm his machine operator general he states that following this he knows that he would go to senior care for this and is having suicidal ideations as he states that if he harmed his case therapist here then kill himself to keep himself from going to senior care he denies any other recent illness denies any fevers or chills, chest pain shortness of breath or any other symptoms <Isaiah Lake DO - Last Filed: 05/30/20 22:25> Related Data Home Medications: Home Medications Medication Instructions Recorded Confirmed divalproex 2,000 mg PO DAILY 02/01/19 07/05/19 gabapentin 300 mg PO TID 02/01/19 metformin 500 mg PO BID 02/01/19 docusate sodium [DOK] PO 01/31/20 01/31/20 diphenhydramine HCl [Benadryl] 25 mg PO HS 03/04/20 03/04/20 escitalopram oxalate mg 03/04/20 trazodone 03/04/20 cetirizine mg 04/10/20 prazosin 04/10/20 <Isaiah Lake DO - Last Filed: 05/30/20 22:25> Allergies/Adverse Reactions: Allergies Allergy/AdvReac Type Severity Reaction Status Date / Time amoxicillin Allergy Intermediate Other Verified 04/10/20 09:49 red dye Allergy Intermediate Other Verified 04/10/20 09:49 latex Allergy Mild Rash Verified 04/10/20 09:49 ibuprofen AdvReac Mild Other Verified 04/10/20 09:49 <Isaiah Lake DO - Last Filed: 05/30/20 22:25> Review of Systems Review of Systems: Narrative: Gen.: Denies fevers or chills ENT: Denies congestion Respiratory: Denies shortness of breath or cough CV: Denies chest pain or palpitations GI: Denies abdominal pain nausea, emesis or diarrhea Musculoskeletal: Denies back pain or muscle pain Neuro: Denies numbness, tingling, weakness or focal weakness Skin: Denies rash Psych: See HPI Except as documented, all other systems reviewed and negative <Isaiah Lake DO - Last Filed: 05/30/20 22:25> [facility] Past Medical History Medical History: Medical History (Updated 05/30/20 @ 22:03 by Isaiah Lake DO) Anxiety Arthritis Asthma Bronchitis Depression Diabetes GERD (gastroesophageal reflux disease) History of bipolar disorder HTN (hypertension) Previous known suicide attempt Schizophrenia Seizure Sleep apnea Ulcer UTI (urinary tract infection) <Isaiah Lake DO - Last Filed: 05/30/20 22:25> Surgical History Surgical History: Surgical History History of bilateral hip replacements <Isaiah Lake DO - Last Filed: 05/30/20 22:25> Social History Social History: Social History Smoking status: Never smoker Alcohol intake: current Substance use type: marijuana Gender identity (if verbalized by the patient): Female <Isaiah Lake DO - Last Filed: 0
--- NOTE | 2020-05-30 00:36 | PC.NURSE ---
Pt resting on cart and remains calm and cooperative. Sitter remains at bedside. Pt is in no obvious distress at this time, is aware of poc and has no complaints or concerns at this time.
[2020-05-30 00:40] LABS: Alanine Aminotransferase 17 U/L (4-50); Albumin Level 3.8 g/dL (3.5-5.1); Alkaline Phosphatase 113 U/L (38-126); Anion Gap 9 mmol/L (8-16); Aspartate Amino Transferase 23 U/L (17-59); Bilirubin,Total 0.3 mg/dL (0.2-1.3); Blood Urea Nitrogen 11 mg/dL (9-20); Calcium 8.7 mg/dL (8.4-10.2); Carbon Dioxide 22 mmol/L (22-30); Chloride 107 mmol/L (98-107); Estimated Glomerular Filt Rate > 60; Glucose 148 mg/dL (75-110); Potassium 3.4 mmol/L (3.4-5.0); Sodium 138 mmol/L (137-145)
[2020-05-30 00:45] LABS: Ethanol < 10 mg/dL (<10)
[2020-05-30 00:47] LABS: Amphetamine Screen Urine Negative (Negative); Barbiturate Screen Urine Negative (Negative); Benzodiazepines Screen Urine Negative (Negative); Cannabinoid Screen Urine Negative (Negative); Cocaine Screen Urine Negative (Negative); Methadone Screen Urine Negative (Negative); Opiate Screen Urine Negative (Negative); Phencyclidine Screen Urine Negative (Negative)
[2020-05-30 01:05] LABS: Basophils Absolute Auto 0.1 K/mm3 (0.0-0.1); Basophils Percent Auto 0.5 % (0.2-1.2); Eosinophils Absolute Auto 0.2 K/mm3 (0-0.3); Eosinophils Percent Auto 1.6 % (0-4.4); Hematocrit 43.2 % (42.0-52.0); Hemoglobin 13.8 g/dL (14.0-18.0); Immature Granulocyte Absolute 0.03 K/mm3 (0.00-0.031); Immature Granulocyte Percent A 0.3 % (0-0.5); Immature Platelet Fraction Pct 7.2 % (0.9-11.2); Lymphocytes Absolute Auto 2.54 K/mm3 (0.9-3.2); Lymphocytes Percent Auto 22.9 % (18.3-44.2); Mean Corpuscular HGB Conc 31.9 g/dl (32-36); Mean Corpuscular Hemoglobin 25.9 pg (26-34); Mean Corpuscular Volume 81.1 fl (80-100); Mean Platelet Volume 11.6 fl (7.4-10.4); Monocytes Absolute Auto 0.8 K/mm3 (0.1-0.6); Monocytes Percent Auto 7.2 % (2.6-8.5); Neutrophils Absolute Auto 7.5 K/mm3 (1.3-6.7); Neutrophils Percent Auto 67.5 % (45.5-73.1); Platelet Count Result 113 k/mm3 (150-375); Red Blood Count 5.33 M/mm3 (4.6-6.20); Red Cell Distribution Width 13.6 % (11.5-14.5); White Blood Count 11.1 K/mm3 (4.5-10.0)
[2020-05-30 01:08] LABS: Add Urine Microscopic? NO; Appearance Urine Clear (Clear); Bilirubin Urine Negative (Negative); Blood Urine Negative (Negative); Color Urine Straw (Yellow); Glucose Urine UA Negative (Negative); Ketones Urine Negative (Negative); Leukocyte Esterase Ur Negative LEU/UL (Negative); Nitrate Urine Negative (Negative); Protein Urine Negative (Negative); Specific Grav Ur 1.008 (1.001-1.035); Urobilinogen Urine Negative mg/dL (<2.0)
--- NOTE | 2020-05-30 01:26 | PC.NURSE ---
crisis notified and will evaluate Juan Antonio.
--- NOTE | 2020-05-30 02:24 | PC.NURSE ---
lime kiln worker helper presented to bedside to assess pt. Looking for placement. Staff to contact [facility] after 0900 on 05/30/20 for placement.
--- NOTE | 2020-05-30 03:38 | PC.NURSE ---
Pt on cart talking to staff. No complaints or concerns voiced. Pt remains calm and cooperative and is in no obvious distress at this time. Sitter remains at bedside.
--- NOTE | 2020-05-30 04:23 | PC.NURSE ---
Pt resting on cart in tis lowest position with call button and personal items within reach. No complaints or concerns voiced. Pt remains on suicidal/homicidal ideations and sitter remains at bedside.
--- NOTE | 2020-05-30 05:23 | PC.NURSE ---
Pt resting on cart calm and cooperative. No complaints or concerns voiced. Sitter remains at bedside.
--- NOTE | 2020-05-30 05:27 | PC.NURSE ---
Pt provided micah mist and lunch box per ok from EDMD. Pt has no complaints or concerns, is calm and cooperative this time. Sitter remains at bedside.
--- NOTE | 2020-05-30 05:31 | PC.NURSE ---
Pt provided lunch box an micah mist with no complaints or concerns voiced at this time. Pt is calm and cooperative and in no obvious distress at this time. Sitter remains at bedside.
--- NOTE | 2020-05-30 05:45 | PC.NURSE ---
Pt resting on cart and remains calm and cooperative. Sitter at bedside and pt remains on suicidal/homicidal precautions.
--- NOTE | 2020-05-30 06:24 | PC.NURSE ---
Pt to room 15. Sleeping on cart. Pt remains on suicidal/homicidal precautions and sitter remains at bedside.
[2020-05-30 09:00] VITALS: BP 136/85; PULSE 56; RESP 16; O2SAT 100
--- NOTE | 2020-05-30 15:23 | PC.NURSE ---
CALLED CRISIS RESIDENTIAL UNIT. STATS NO ONE FROM [facility] IS IN OFFICE TODAY AND WILL CALL BACK TOMORROW TO DISCUSS PLACEMENT
--- NOTE | 2020-05-30 15:25 | PC.NURSE ---
CALLED CRISIS TO DISCUSS PLAN OF CARE. STATE WILL PAGE COUNSELOR.
--- NOTE | 2020-05-30 15:37 | PC.NURSE ---
CALL RECEIVED FROM GUILHERME WITH CRISIS. STATES WILL CALL SW WHO ASSESSED PT THIS AM TO CHECK ON STATUS OF PLACEMENT
--- NOTE | 2020-05-30 17:37 | PC.NURSE ---
CALLED CRISIS COUNSELOR, MESSAGE LEFT.
--- NOTE | 2020-05-30 17:41 | PC.NURSE ---
MEAL TRAY ORDERED
--- NOTE | 2020-05-30 18:07 | PC.NURSE ---
CALL RECEIVED FROM CRISIS COUNSELOR. CRISIS COUNCELOR TO BE OUT TO RE-EVALUATE PT
[2020-05-30] MEDS: ESCITALOPRAM OXALATE 10 MG TABLET 20 MG PO (18:15)
[2020-05-30 18:27] VITALS: BP 148/75; PULSE 55; RESP 18; TEMP 36.7; O2SAT 98
--- NOTE | 2020-05-30 21:10 | PC.NURSE ---
CALLED CRISIS CENTER SPOKE WITH GUILHERME. PER GUILHERME SHE WAS ABLE TO CONTACT COUNSELOR DAMON WHO EVALUATED PT AT 0500. PER DAMON PT HAS BEEN CLEARED BY CRISIS. STATES PROVIDED PT WITH HOMELESS JAIL INFORMATION. DR HERRERA NOTIFIED
[2020-05-30 22:37] VITALS: BP 150/80; PULSE 60; RESP 20; O2SAT 99
== END 2020-05-30 22:41 | disposition home or self-care (01) ==
PROVIDERS: Emergency Provider Emergency Medicine
DX: R44.0 Auditory hallucinations (principal); F41.9 Anxiety disorder, unspecified; F31.9 Bipolar disorder, unspecified; F20.9 Schizophrenia, unspecified; K21.9 Gastro-esophageal reflux disease without esophagitis; J45.909 Unspecified asthma, uncomplicated; G47.30 Sleep apnea, unspecified; M19.90 Unspecified osteoarthritis, unspecified site; Z87.440 Personal history of urinary (tract) infections; Z96.643 Presence of artificial hip joint, bilateral
CPT/HCPCS: 36415; 70450; 80053; 80307; 81003; 84443; 85025; 85055; 99284; A9270

== ENCOUNTER 2020-11-20 18:54 | Emergency (ER) | payer OTHER, SELFPAY ==
[2020-11-20 19:21] VITALS: BP 147/80; PULSE 85; RESP 14; TEMP 36.9; O2SAT 98
--- NOTE | 2020-11-20 20:20 | ECG_ITS ---
Measurements Intervals [place] Rate: 45 P: 41 VT: 219 QRS: 13 QRSD: 101 T: 30 QT: 448 QTc: 388 Interpretive Statements SINUS BRADYCARDIA WITH FIRST DEGREE AV BLOCK INCOMPLETE RIGHT BUNDLE BRANCH BLOCK ABNORMAL ECG Electronically Signed On 11-21-2020 6:49:42 CDT by Donte Sanchez D.O.
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
[2020-11-20] MEDS: CLINDAMYCIN HCL 150 MG CAP 300 MG PO (20:26)
[2020-11-20] MEDS: ACETAMINOPHEN 500 MG TABLET 1000 MG PO (20:26)
[2020-11-20 20:47] LABS: Basophils Absolute Auto 0.1 K/mm3 (0.0-0.1); Basophils Percent Auto 0.5 % (0.2-1.2); Eosinophils Absolute Auto 0.2 K/mm3 (0-0.3); Eosinophils Percent Auto 1.8 % (0-4.4); Hematocrit 39.1 % (42.0-52.0); Hemoglobin 12.4 g/dL (14.0-18.0); Immature Granulocyte Absolute 0.02 K/mm3 (0.00-0.031); Immature Granulocyte Percent A 0.2 % (0-0.5); Immature Platelet Fraction Pct 5.7 % (0.9-11.2); Lymphocytes Absolute Auto 2.01 K/mm3 (0.9-3.2); Lymphocytes Percent Auto 20.6 % (18.3-44.2); Mean Corpuscular HGB Conc 31.7 g/dl (32-36); Mean Corpuscular Hemoglobin 25.9 pg (26-34); Mean Corpuscular Volume 81.8 fl (80-100); Mean Platelet Volume 11.4 fl (7.4-10.4); Monocytes Absolute Auto 0.7 K/mm3 (0.1-0.6); Monocytes Percent Auto 7.1 % (2.6-8.5); Neutrophils Absolute Auto 6.8 K/mm3 (1.3-6.7); Neutrophils Percent Auto 69.8 % (45.5-73.1); Platelet Count Result 120 k/mm3 (150-375); Red Blood Count 4.78 M/mm3 (4.6-6.20); Red Cell Distribution Width 13.7 % (11.5-14.5); White Blood Count 9.8 K/mm3 (4.5-10.0)
[2020-11-20 20:51] LABS: Add Urine Microscopic? YES; Appearance Urine Clear (Clear); Bacteria Urine Trace /hpf; Bilirubin Urine Negative (Negative); Blood Urine Negative (Negative); Color Urine Yellow (Yellow); Glucose Urine UA Negative (Negative); Ketones Urine Negative (Negative); Leukocyte Esterase Ur 2+ LEU/UL (Negative); Mucus Urine Few /lpf; Nitrate Urine Negative (Negative); Protein Urine 1+ mg/dL (Negative); RBC Urine 21-50 /hpf (0-2); Squamous Epithelial Cell Urine Many /hpf (Few); WBC Urine 51-75 /hpf
[2020-11-20 20:54] LABS: Specific Grav Ur 1.032 (1.001-1.035)
[2020-11-20 20:56] LABS: Ethanol < 10 mg/dL (<10)
[2020-11-20 20:57] LABS: Acetaminophen < 10 ug/mL (10-30); Alanine Aminotransferase 27 U/L (4-50); Albumin Level 3.6 g/dL (3.5-5.1); Alkaline Phosphatase 96 U/L (38-126); Anion Gap 9 mmol/L (8-16); Aspartate Amino Transferase 26 U/L (17-59); Bilirubin,Total 0.5 mg/dL (0.2-1.3); Blood Urea Nitrogen 13 mg/dL (9-20); Calcium 8.7 mg/dL (8.4-10.2); Carbon Dioxide 27 mmol/L (22-30); Chloride 104 mmol/L (98-107); Estimated CRCL calculation 257 ml/min; Estimated Glomerular Filt Rate > 60; Glucose 123 mg/dL (65-110); Potassium 3.8 mmol/L (3.4-5.0); Salicylate < 1.0 mg/dL (2-20); Sodium 140 mmol/L (137-145)
[2020-11-20 21:04] LABS: Amphetamine Screen Urine Negative (Negative); Barbiturate Screen Urine Negative (Negative); Benzodiazepines Screen Urine Negative (Negative); Cannabinoid Screen Urine Negative (Negative); Cocaine Screen Urine Negative (Negative); Methadone Screen Urine Negative (Negative); Opiate Screen Urine Positive (Negative); Phencyclidine Screen Urine Negative (Negative)
[2020-11-20 21:27] LABS: Thyroid Stimulating Hormone 0.397 uIU/mL (0.465-4.680)
[2020-11-20 22:27] VITALS: BP 138/86; PULSE 85; RESP 16; O2SAT 100
== END 2020-11-20 22:28 | disposition home or self-care (01) ==
PROVIDERS: Emergency Provider Emergency Medicine
DX: K08.89 Other specified disorders of teeth and supporting structures (principal); N39.0 Urinary tract infection, site not specified; F32.9 Major depressive disorder, single episode, unspecified; R00.1 Bradycardia, unspecified; I44.0 Atrioventricular block, first degree; I45.10 Unspecified right bundle-branch block
CPT/HCPCS: 36415; 80053; 80307; 81001; 84443; 85025; 85055; 87086; 87088; 93005; 99284; A9270

== ENCOUNTER 2020-12-30 15:08 | Emergency (ER) | payer OTHER, SELFPAY ==
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
[2020-12-30 15:36] VITALS: BP 105/58; PULSE 96; RESP 18; TEMP 36.7; O2SAT 100
[2020-12-30 15:45] LABS: Basophils Percent Auto 0.5 % (0.2-1.2); Eosinophils Absolute Auto 0.1 K/mm3 (0-0.3); Eosinophils Percent Auto 0.6 % (0-4.4); Hematocrit 42.7 % (42.0-52.0); Hemoglobin 13.5 g/dL (14.0-18.0); Immature Granulocyte Absolute 0.03 K/mm3 (0.00-0.031); Immature Granulocyte Percent A 0.4 % (0-0.5); Immature Platelet Fraction Pct 7.4 % (0.9-11.2); Lymphocytes Absolute Auto 1.43 K/mm3 (0.9-3.2); Lymphocytes Percent Auto 17.3 % (18.3-44.2); Mean Corpuscular HGB Conc 31.6 g/dl (32-36); Mean Corpuscular Hemoglobin 26.5 pg (26-34); Mean Corpuscular Volume 83.9 fl (80-100); Mean Platelet Volume 11.6 fl (7.4-10.4); Monocytes Absolute Auto 0.6 K/mm3 (0.1-0.6); Monocytes Percent Auto 6.9 % (2.6-8.5); Neutrophils Absolute Auto 6.1 K/mm3 (1.3-6.7); Neutrophils Percent Auto 74.3 % (45.5-73.1); Platelet Count Result 124 k/mm3 (150-375); Red Blood Count 5.09 M/mm3 (4.6-6.20); Red Cell Distribution Width 13.3 % (11.5-14.5); White Blood Count 8.3 K/mm3 (4.5-10.0)
[2020-12-30 15:51] LABS: Add Urine Microscopic? YES; Appearance Urine Cloudy (Clear); Bacteria Urine Trace /hpf; Bilirubin Urine Negative (Negative); Blood Urine 1+ (Negative); Color Urine Yellow (Yellow); Glucose Urine UA Negative (Negative); Ketones Urine Negative (Negative); Leukocyte Esterase Ur Trace LEU/UL (Negative); Mucus Urine Rare /lpf; Nitrate Urine Negative (Negative); Protein Urine 2+ mg/dL (Negative); Specific Grav Ur 1.026 (1.001-1.035); Squamous Epithelial Cell Urine Moderate /hpf (Few); Urobilinogen Urine Negative mg/dL (<2.0)
[2020-12-30 15:57] LABS: Alanine Aminotransferase 30 U/L (4-50); Albumin Level 4.3 g/dL (3.5-5.1); Alkaline Phosphatase 106 U/L (38-126); Anion Gap 9 mmol/L (8-16); Aspartate Amino Transferase 36 U/L (17-59); Bilirubin,Total 0.6 mg/dL (0.2-1.3); Blood Urea Nitrogen 12 mg/dL (9-20); Calcium 9.4 mg/dL (8.4-10.2); Carbon Dioxide 29 mmol/L (22-30); Chloride 105 mmol/L (98-107); Estimated CRCL calculation 373 ml/min; Estimated Glomerular Filt Rate > 60; Ethanol < 10 mg/dL (<10); Glucose 104 mg/dL (65-110); Potassium 3.8 mmol/L (3.4-5.0); Sodium 143 mmol/L (137-145)
[2020-12-30 16:08] LABS: Amphetamine Screen Urine Negative (Negative); Barbiturate Screen Urine Negative (Negative); Benzodiazepines Screen Urine Negative (Negative); Cannabinoid Screen Urine Negative (Negative); Cocaine Screen Urine Negative (Negative); Methadone Screen Urine Negative (Negative); Opiate Screen Urine Negative (Negative); Phencyclidine Screen Urine Negative (Negative)
[2020-12-30 16:28] LABS: Thyroid Stimulating Hormone 0.829 uIU/mL (0.465-4.680)
== END 2020-12-30 17:28 | disposition home or self-care (01) ==
LOC: ANHED 17:18
PROVIDERS: Emergency Medicine Emergency Medical Services; Emergency Provider General Practice
DX: F41.9 Anxiety disorder, unspecified (principal); M19.90 Unspecified osteoarthritis, unspecified site; J45.909 Unspecified asthma, uncomplicated; F32.9 Major depressive disorder, single episode, unspecified; E11.9 Type 2 diabetes mellitus without complications; K21.9 Gastro-esophageal reflux disease without esophagitis; I10 Essential (primary) hypertension; Z87.440 Personal history of urinary (tract) infections; G47.30 Sleep apnea, unspecified
CPT/HCPCS: 36415; 80053; 80307; 81001; 84443; 85025; 85055; 99283

== ENCOUNTER 2021-01-24 20:28 | Emergency (ER) | payer OTHER, SELFPAY ==
[2021-01-24 20:31] VITALS: BP 123/56; PULSE 56; RESP 20; TEMP 36.4; O2SAT 100
--- NOTE | 2021-01-24 21:37 | ED.GENADULT ---
HPI - General Adult General Chief complaint: Dental/Oral Stated complaint: toothache Time Seen by Provider: 01/24/21 21:24 History of Present Illness HPI narrative: Is a 30-year-old gentleman who presents the emergency department with chief complaint of dental pain. Patient reports that he has multiple dental caries and reports that he has been trying to see an oral surgeon but cannot find one that is covered by his insurance and wanted to be transferred to [place] but the ambulance would not take him to [facility]. Patient denies suicidal or homicidal ideation patient states that the pain is making it where he can barely function. Patient denies fever denies purulent drainage Related Data Home Medications Medication Instructions Recorded Confirmed divalproex 2,000 mg PO DAILY 02/01/19 07/05/19 gabapentin 300 mg PO TID 02/01/19 metformin 500 mg PO BID 02/01/19 docusate sodium [DOK] PO 01/31/20 01/31/20 diphenhydramine HCl [Benadryl] 25 mg PO HS 03/04/20 03/04/20 escitalopram oxalate mg 03/04/20 trazodone 03/04/20 cetirizine mg 04/10/20 prazosin 04/10/20 Allergies Allergy/AdvReac Type Severity Reaction Status Date / Time amoxicillin Allergy Intermediate Other Verified 04/10/20 09:49 red dye Allergy Intermediate Other Verified 04/10/20 09:49 latex Allergy Mild Rash Verified 04/10/20 09:49 ibuprofen AdvReac Mild Other Verified 04/10/20 09:49 Review of Systems Review of Systems: A 10 system review of systems was completed on the patient and is negative except for what is stated in the HPI. Nursing and ancillary documentation was reviewed. [facility] Past Medical History Medical History (Updated 01/24/21 @ 21:38 by Syed Brantley MD) Anxiety Arthritis Asthma Bronchitis Depression Diabetes GERD (gastroesophageal reflux disease) History of bipolar disorder HTN (hypertension) Previous known suicide attempt Schizophrenia Seizure Sleep apnea Ulcer UTI (urinary tract infection) Surgical History Surgical History History of bilateral hip replacements Social History Social History Smoking status: Never smoker Alcohol intake: current Substance use type: does not use Gender identity (if verbalized by the patient): Female Exam Narrative: GENERAL: Well-appearing, well-nourished, and in no acute distress. HEAD: Normocephalic, atraumatic. EYES: PERRLA and EOMI. ENT: Nares clear, no rhinorrhea or epistaxis. Mucous membranes moist. Multiple dental caries NECK: Supple. CHEST: Clear to auscultation. No respiratory distress. HEART: Regular rate and rhythm. No murmur heard. Normal peripheral pulses. ABDOMEN: Soft, nontender, nondistended, normal active bowel sounds. EXTREMITIES: Normal range of motion. No edema. SKIN: Warm, dry, no rash. NEURO: No focal deficits. Alert and oriented x3. PSYCH: Normal mood and affect. Course Vital Signs Vital signs: Vital Signs Temperature 36.4 C 01/24/21 20:31 Pulse Rate 56 L 01/24/21 20:31 Respiratory Rate 20 01/24/21 20:31 Blood Pressure 123/56 L 01/24/21 20:31 Pulse Oximetry 100 01/24/21 20:31 Temperature 36.4 C 01/24/21 20:31 Pulse Rate 56 L 01/24/21 20:31 Respiratory Rate 20 01/24/21 20:31 Blood Pressure 123/56 L 01/24/21 20:31 Pulse Oximetry 100 01/24/21 20:31 Medical Decision Making Vital Signs Vital Signs: Vital Signs Temperature 36.4 C 01/24/21 20:31 Pulse Rate 56 L 01/24/21 20:31 Respiratory Rate 20 01/24/21 20:31 Blood Pressure 123/56 L 01/24/21 20:31 Pulse Oximetry 100 01/24/21 20:31 Temperature 36.4 C 01/24/21 20:31 Pulse Rate 56 L 01/24/21 20:31 Respiratory Rate 20 01/24/21 20:31 Blood Pressure 123/56 L 01/24/21 20:31 Pulse Oximetry 100 01/24/21 20:31 Discharge Plan Discharge Clinical Impression: Dental caries Patient Disposition: H
[2021-01-24] MEDS: CLINDAMYCIN HCL 150 MG CAP 300 MG PO (21:51)
[2021-01-24 22:35] VITALS: BP 123/78; PULSE 78; RESP 18; O2SAT 99
== END 2021-01-24 22:36 | disposition home or self-care (01) ==
LOC: ANHED 22:15
PROVIDERS: Emergency Provider Emergency Medicine; PCP Internal Medicine
DX: K02.9 Dental caries, unspecified (principal); F41.9 Anxiety disorder, unspecified; M19.90 Unspecified osteoarthritis, unspecified site; F32.A Depression, unspecified; E11.9 Type 2 diabetes mellitus without complications; I10 Essential (primary) hypertension; F20.9 Schizophrenia, unspecified; R56.9 Unspecified convulsions; G47.30 Sleep apnea, unspecified; Z87.09 Personal history of other diseases of the respiratory system
CPT/HCPCS: 99283; A9270

== ENCOUNTER 2021-03-30 20:29 | Emergency (ER) | payer OTHER, SELFPAY ==
[2021-03-30 20:28] VITALS: BP 131/55; PULSE 61; RESP 16; TEMP 36.4; O2SAT 97
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
[2021-03-30 22:22] LABS: Basophils Absolute Auto 0.1 K/mm3 (0.0-0.1); Basophils Percent Auto 0.5 % (0.2-1.2); Eosinophils Absolute Auto 0.2 K/mm3 (0-0.3); Eosinophils Percent Auto 2.1 % (0-4.4); Hematocrit 45.9 % (42.0-52.0); Hemoglobin 14.4 g/dL (14.0-18.0); Immature Granulocyte Absolute 0.02 K/mm3 (0.00-0.031); Immature Granulocyte Percent A 0.2 % (0-0.5); Lymphocytes Percent Auto 24.8 % (18.3-44.2); Mean Corpuscular HGB Conc 31.4 g/dl (32-36); Mean Corpuscular Hemoglobin 26.1 pg (26-34); Mean Corpuscular Volume 83.2 fl (80-100); Mean Platelet Volume 11.3 fl (7.4-10.4); Monocytes Absolute Auto 0.7 K/mm3 (0.1-0.6); Monocytes Percent Auto 6.7 % (2.6-8.5); Neutrophils Absolute Auto 6.4 K/mm3 (1.3-6.7); Neutrophils Percent Auto 65.7 % (45.5-73.1); Platelet Count Result 154 k/mm3 (150-375); Red Blood Count 5.52 M/mm3 (4.6-6.20); Red Cell Distribution Width 13.6 % (11.5-14.5); White Blood Count 9.7 K/mm3 (4.5-10.0)
[2021-03-30 22:24] LABS: Add Urine Microscopic? NO; Appearance Urine Clear (Clear); Bilirubin Urine Negative (Negative); Blood Urine Negative (Negative); Color Urine Straw (Yellow); Glucose Urine UA Negative (Negative); Ketones Urine Negative (Negative); Leukocyte Esterase Ur Negative LEU/UL (Negative); Nitrate Urine Negative (Negative); Protein Urine Negative (Negative); Urobilinogen Urine Negative mg/dL (<2.0)
[2021-03-30 22:37] LABS: Amphetamine Screen Urine Negative (Negative); Barbiturate Screen Urine Negative (Negative); Benzodiazepines Screen Urine Negative (Negative); Cannabinoid Screen Urine Negative (Negative); Cocaine Screen Urine Negative (Negative); Methadone Screen Urine Negative (Negative); Opiate Screen Urine Negative (Negative); Phencyclidine Screen Urine Negative (Negative)
[2021-03-30 22:56] LABS: SARS-CoV-2 RNA PCR Positive
[2021-03-30 23:13] LABS: Alanine Aminotransferase 29 U/L (4-50); Alkaline Phosphatase 84 U/L (38-126); Anion Gap 9 mmol/L (8-16); Aspartate Amino Transferase 33 U/L (17-59); Bilirubin,Total 0.5 mg/dL (0.2-1.3); Blood Urea Nitrogen 10 mg/dL (9-20); Calcium 8.5 mg/dL (8.4-10.2); Carbon Dioxide 30 mmol/L (22-30); Chloride 100 mmol/L (98-107); Estimated CRCL calculation 178 ml/min; Estimated Glomerular Filt Rate > 60; Glucose 104 mg/dL (65-110); Potassium 4.2 mmol/L (3.4-5.0); Sodium 139 mmol/L (137-145)
[2021-03-30 23:23] LABS: Ethanol < 10 mg/dL (<10)
--- NOTE | 2021-03-30 23:32 | PC.NURSE ---
Delio phone number [phone] Brother phone number [phone]
--- NOTE | 2021-03-30 23:53 | PC.NURSE ---
Pt requesting pain medication for tooth pain at this time. ERP notified.
[2021-03-31 00:12] VITALS: BP 123/75; PULSE 55; RESP 18; TEMP 36.6; O2SAT 100
[2021-03-31] MEDS: IBUPROFEN 600 MG TABLET PO (00:12)
--- NOTE | 2021-03-31 00:39 | PC.NURSE ---
Pt medically cleared by GRIS Nunes. Crisis called, spoke with Hari. Relayed that pt COVID swab is positive, but pt tested positive 2 weeks ago and is now asymptomatic, per CDC guidelines pt is cleared. Hari to send [facility] to ED to evaluate pt.
--- NOTE | 2021-03-31 02:15 | PC.NURSE ---
Per Crisis, updated guardianship paperwork needed on pt prior to transfer. Staff transfer iron operator unable to obtain paperwork, states we need to call [employer] at [phone] for updated form to be faxed here. Office opens at 0830.
--- NOTE | 2021-03-31 02:32 | PC.NURSE ---
[facility] in [place] would like all paperwork faxed to [phone].
--- NOTE | 2021-03-31 03:10 | PC.NURSE ---
Paperwork faxed to [facility] ([phone]) per facility request.
--- NOTE | 2021-03-31 04:33 | PC.NURSE ---
[facility] in [place], [place] does not have any available beds at this time.
[2021-03-31 04:43] VITALS: BP 117/77; PULSE 59; RESP 16; O2SAT 98
--- NOTE | 2021-03-31 06:12 | PC.NURSE ---
[facility] called, spoke with Myla (ED associate professor of biology). Facility stated they have an accepting physician, do not have an available bed yet. Stated they would call after 0730 this AM with bed.
--- NOTE | 2021-03-31 08:37 | PC.NURSE ---
pt states that he no longer wants to kill himself or his dad. states that it was stupid to say that states he was upset while fighting with his dad. pt requests to have continuous pillowcase cutter set up an appointment with his counselor instead of getting admitted. also states that he is trying to find a new place to live, possibly his brother, in order to give his dad some space. states his dad is not handling the of pt's mother in november and could use some time to recover.
--- NOTE | 2021-03-31 09:44 | PC.NURSE ---
updated guardian paperwork on chart.
[2021-03-31] MEDS: ACETAMINOPHEN 325 MG TABLET 650 MG PO (10:32)
--- NOTE | 2021-03-31 10:49 | PC.NURSE ---
Rosa from crisis called back to update status. Awaiting callback from [facility] full at this time. Possibile reeval in am for continued need for placement
[2021-03-31 10:55] VITALS: BP 138/84; PULSE 52; RESP 18; O2SAT 100
--- NOTE | 2021-03-31 10:58 | PC.NURSE ---
spoke with vangie almonte, who would like notification if pt gets room somewhere. number to office is [phone]
--- NOTE | 2021-03-31 15:20 | PC.NURSE ---
pt going to [place]. Vela will be here at 1637
[2021-03-31 16:16] VITALS: BP 138/72; PULSE 60; RESP 16; O2SAT 100
== END 2021-03-31 16:20 ==
PROVIDERS: Emergency Provider Emergency Medicine; PCP Internal Medicine
DX: R45.851 Suicidal ideations (principal); R45.850 Homicidal ideations; U07.1 COVID-19; F41.9 Anxiety disorder, unspecified; F20.9 Schizophrenia, unspecified; F31.9 Bipolar disorder, unspecified; J45.909 Unspecified asthma, uncomplicated; E11.9 Type 2 diabetes mellitus without complications; I10 Essential (primary) hypertension; K21.9 Gastro-esophageal reflux disease without esophagitis; G47.30 Sleep apnea, unspecified; M19.90 Unspecified osteoarthritis, unspecified site; Z87.440 Personal history of urinary (tract) infections; Z96.643 Presence of artificial hip joint, bilateral; Z79.84 Long term (current) use of oral hypoglycemic drugs
CPT/HCPCS: 36415; 80053; 80307; 81003; 84443; 85025; 99285; A9270; C9803; U0003; U0005

== ENCOUNTER 2021-08-12 15:48 | Emergency (ER) | payer OTHER, SELFPAY ==
--- NOTE | ~2021-08-12 | CT_ITS ---
EXAMINATION: CT brain wo con DATE: 08/12/2021 16:28 INDICATION: Seizure today. Frontal headache. TECHNIQUE: Computed tomography (CT) of the head was performed without intravenous contrast. The mA wa s adjusted according to patient size. Iterative reconstruction technique was employed. Exam dose: 68 1.00 mGy-cm total exam DLP. COMPARISON: None FINDINGS: No intracranial mass lesion or hemorrhage or cerebrovascular accident is detected. No midl ine shift or mass effect. Normal horowitz white matter differentiation. Normal ventricular size. No chakraborty bdural or epidural hematoma. There are maxillary tooth periapical abscesses suggested on the lower most images. No skull fracture or bone destruction. The paranasal sinuses and mastoid air cells are normally developed and aerated. IMPRESSION: No significant intracranial abnormality Reviewed, dictated and finalized at [facility]. Reviewed, dictated and finalized at [facility].
[2021-08-12 16:11] VITALS: BP 121/75; PULSE 86; RESP 16; TEMP 36.9; O2SAT 95
[2021-08-12] MEDS: LORazepam (*CRX) 0.5 MG TABLET PO (16:18)
--- NOTE | 2021-08-12 16:20 | ED.SEIZURE ---
HPI - Seizure General Chief Complaint: Seizure Stated Complaint: AMB Source: patient and EMS Mode of arrival: EMS Limitations: no limitations History of Present Illness HPI Narrative: this is a 30-year-old gentleman that presents with some seizures apparently patient was with his continuity coordinator and recently had dental procedure where he had teeth extracted and while driving in the car he had 2 witnessed seizures now lasting for more than few seconds each no tongue biting no loss of bowel or bladder, currently is some not confused no blurry vision no headache no chest pain no shortness of breath no fever chills, does have a history of depression diabetes and seizure disorder. complaint: seizure Onset (ago): minute(s) -: second(s) Witnessed: Yes - by Other Trauma: No Seizure History: Yes Place: outdoors Related Data Home Medications Medication Instructions Recorded Confirmed divalproex 500 mg tablet,extended 2,000 mg PO DAILY 02/01/19 07/05/19 release 24 hr gabapentin 100 mg capsule 300 mg PO TID 02/01/19 metformin 500 mg tablet 500 mg PO BID 02/01/19 docusate sodium 100 mg tablet (DOK) PO 01/31/20 01/31/20 diphenhydramine HCl 25 mg capsule 25 mg PO HS 03/04/20 03/04/20 (Benadryl) escitalopram oxalate 10 mg tablet mg 03/04/20 trazodone 100 mg tablet 03/04/20 cetirizine 10 mg tablet mg 04/10/20 prazosin 1 mg capsule 04/10/20 Allergies Allergy/AdvReac Type Severity Reaction Status Date / Time amoxicillin Allergy Intermediate Other Verified 08/12/21 16:21 red dye Allergy Intermediate Other Verified 08/12/21 16:21 latex Allergy Mild Rash Verified 08/12/21 16:21 ibuprofen AdvReac Mild Other Verified 08/12/21 16:21 Review of Systems Review of Systems: All systems reviewed & are unremarkable except as noted in HPI and below PMFSH Past Medical History Medical History (Updated 08/12/21 @ 16:50 by Veto Headley MD) Anxiety Arthritis Asthma Bronchitis Depression Diabetes GERD (gastroesophageal reflux disease) History of bipolar disorder HTN (hypertension) Previous known suicide attempt Schizophrenia Seizure Sleep apnea Ulcer UTI (urinary tract infection) Surgical History Surgical History History of bilateral hip replacements Social History Social History Smoking status: Never smoker Alcohol intake: current Substance use type: marijuana Gender identity (if verbalized by the patient): Female Exam Const: General: healthy appearing, no acute distress and alert Nutritional Appearance: well nourished Orientation/consciousness: patient oriented x3 Limitations: no limitations HENMT: Head: normal to inspection General nose exam: Normal external nose present Face and sinus: normal facial exam Teeth and gingiva: abnormal tooth and associated gingiva ( Recent dental extraction) Eyes: Conjunctivae: conjunctivae normal Pupils: Equal, round and reactive pupils present Neck: Neck: normal visual inspection, no lymphadenopathy and no meningeal signs Chest: Chest palpation & inspection: normal inspection of the chest Resp: Effort & Inspection: normal respiratory effort Auscultation: clear to auscultation bilaterally Cardio: Rate: regular rate Rhythm: regular rhythm GI: GI Palp: Yes Soft to palpation Auscultation: normal bowel sounds Back/Spine/Pelvis: Back: no CVA tenderness Skin: General skin exam: normal color Rashes: no rashes Wounds: no wounds Neuro: General: patient oriented x3, moves all extremities, no meningeal signs and no focal motor deficits Extrem: General: normal to inspection Psych: Appearance: grossly normal Mental Status: mental status grossly normal Course Course Emergency Course: patient received a dose of Ativan, IV fluids and CT scan of pain and labs reviewed with patient. Vital Signs Vital signs: Vital Signs Temperature 36.9 C
[2021-08-12 16:22] LABS: Basophils Absolute Auto 0.06 K/mm3 (0.00-0.10); Basophils Percent Auto 0.5 % (0.0-1.0); Eosinophils Absolute Auto 0.14 K/mm3 (0.02-0.50); Eosinophils Percent Auto 1.3 % (1.0-6.0); Hematocrit 42.6 % (40.0-54.0); Hemoglobin 13.6 g/dL (14.0-18.0); Immature Granulocyte Absolute 0.05 K/mm3 (0.00-0.00); Immature Granulocyte Percent A 0.5 % (0.0-0.0); Lymphocytes Absolute Auto 2.05 K/mm3 (1.10-4.50); Lymphocytes Percent Auto 18.7 % (18.0-42.0); Mean Corpuscular HGB Conc 31.9 g/dL (32.0-36.0); Mean Corpuscular Hemoglobin 26.1 pg (27.0-31.0); Mean Corpuscular Volume 81.6 fL (78.0-102.0); Mean Platelet Volume 10.7 fl (8.7-11.0); Monocytes Absolute Auto 0.57 K/mm3 (0.10-0.90); Monocytes Percent Auto 5.2 % (2.0-11.0); Neutrophils Absolute Auto 8.1 K/mm3 (1.7-7.2); Neutrophils Percent Auto 73.8 % (50.0-70.0); Platelet Count Result 145 K/mm3 (150-420); Red Blood Count 5.22 M/mm3 (4.70-6.10); Red Cell Distribution Width 13.4 % (11.6-14.4); White Blood Count 10.9 K/mm3 (4.8-10.8)
[2021-08-12] MEDS: SODIUM CHLORIDE 0.9% IV 1,000 ML 999 ML IV CONT (16:35)
[2021-08-12 16:38] LABS: Alanine Aminotransferase 31 U/L (16-63); Albumin Level 3.5 g/dL (3.4-5.0); Alkaline Phosphatase 127 U/L (46-116); Anion Gap 5 mmol/L (8-16); Aspartate Amino Transferase 20 U/L (15-37); Bilirubin,Total 0.3 mg/dL (0.00-1.00); Blood Urea Nitrogen 17 mg/dL (7-18); Carbon Dioxide 30 mmol/L (21-32); Chloride 102 mmol/L (98-108); Creatine Kinase 128 U/L (39-308); Estimated Glomerular Filt Rate > 60; Glucose 113 mg/dL (70-99); Osmolality Calculated 286 mOsm/kg (285-295); Potassium 3.9 mmol/L (3.5-5.1); Sodium 137 mmol/L (136-145); Total Protein 7.7 g/dL (6.4-8.2)
--- NOTE | 2021-08-12 16:52 | PC.NURSE ---
iv infiltrated with flush prior to fluids. iv removed, erp states labs are WNL and patient does not need. fluids discontinued.
--- NOTE | 2021-08-12 17:05 | PC.NURSE ---
rn spoke with rn at [facility], they will pay for the expense of ambulance transfer for patient to get ride back
--- NOTE | 2021-08-12 17:06 | PC.NURSE ---
rn reviewed discharge information with RN at [facility], patient is going to be sent back with paper RX and she will get it filled at their pharmacy.
--- NOTE | 2021-08-12 17:14 | PC.NURSE ---
rn called dionne in [place] and canceled escribed prescription. patient provided with paper one in discharge packet.
--- NOTE | 2021-08-12 17:36 | PC.NURSE ---
RN spoke to viola at [facility] he is calling [facility] to verify payment.
--- NOTE | 2021-08-12 17:43 | PC.NURSE ---
Reyna patient's nurse outreach case manager called back states that she does have his belongings and is going to drop it off to him tomorrow at [facility], rn told reyna im not able to agree to that decision and call was transfered into room for patient to talk with her. patient is going to be taken back to [facility] by [facility].
[2021-08-12 18:11] VITALS: BP 151/104; PULSE 74; RESP 18; TEMP 36.6; O2SAT 98
== END 2021-08-12 18:15 | disposition home or self-care (01) ==
PROVIDERS: Emergency Provider Emergency Medicine; PCP Internal Medicine
DX: R56.9 Unspecified convulsions (principal)
CPT/HCPCS: 36415; 70450; 80053; 82550; 85025; 99284; A9270; J7030